=== PATIENT | male | born 1985 | race Caucasian/White ===

== ENCOUNTER 2021-06-07 19:16 | Inpatient (IN) ==
[2021-06-07] MEDS ORDERED: ALBUT/IPRATROP 3MG/0.5MG NEB 3 ML VIAL INH STA (20:46)
[2021-06-07] MEDS ORDERED: dexAMETHasone**PF** 10 MG/ML VIAL IV ONE (20:46)
--- NOTE | 2021-06-07 20:55 | Emergency Department Note ---
Impression & Plan Hypoxia, SOB (shortness of breath), Pneumonia, COVID-19 ED Provider Note NAME: PETER PARKER AGE: 35 SEX: M : 1985 ARRIVES VIA: Walk-In INFORMANT: [Patient] ED PROVIDER(S): [Devang Nunez MD] CHIEF COMPLAINT: Short of breath HISTORY OF PRESENT ILLNESS: The patient is a 35-year-old male who presents to the ED with complaints of dyspnea. He has been sick with what he thought might be the flu for about a week. He has been coughing and fatigued. He has been short of breath. No fever, no nausea or vomiting. He was diagnosed with Covid by outpatient testing. The patient has not been vaccinated. His whole family is ill with Covid although, he is the sickest of all of them. The patient is extremely short of breath with any exertion. He has no known emiliano g disease. He denies any vomiting or diarrhea. He has not had a fever. No issues with his taste or smell. REVIEW OF SYSTEMS: See HPI for pertinent positives and negatives. A total of ten systems were reviewed and were otherwise negative. PMHx/PSHx: See Below SOCIAL HISTORY: See Below. PHYSICAL EXAM: GENERAL: Patient is in mild to moderate respiratory distress. HEENT: No acute trauma, normocephalic atraumatic, mucous membranes moist, no nasal congestion, no scleral icterus. NECK: No stridor, no adenopathy, no meningismus, trachea is midline. LUNGS: Crackles at both bases, worse on the left. Increased respiratory rate, mild to moderate respiratory distress noted. Speaking in shorter sentences. HEART: Tachycardic, regular rhythm, no murmurs. ABDOMEN: Soft, nontender, bowel sounds positive, no hernias, no peritonitis. EXTREMITIES: No cyanosis or edema, full range of motion of all the joints without pain or difficulty, no signs for acute trauma. NEUROLOGIC: Oriented x 3, no acute motor or sensory deficits, no focal weakness. SKIN: No rash, no jaundice, no diaphoresis. DIFFERENTIAL DIAGNOSIS: Reactive airway disease, pneumonia, pneumothorax, COPD, COVID-19, CHF, infection, cardiac ischemia, pulmonary embolism, bronchitis, musculoskeletal, gastrointestinal, as well as other pathologies. EMERGENCY DEPARTMENT COURSE/PROCEDURES: Continuous Cardiac Monitoring: An order was placed for continuous cardiac monitoring. The monitor shows a rate of 105 with sinus tachycardia. Critical Care Note: I have personally spent 51 minutes of critical care time in the direct management of this patient. This includes bedside care, interpretation of diagnostic studies, and testing, discussion with consultants, patient, and family members, and other required patient management activities. This 51 minutes is in excess of all separately billable procedures. MEDICAL DECISION MAKING: There is no leukocytosis, in fact, the white count is slightly low consistent with a viral process. There was a normal hemoglobin and platelet count. No coagulopathy. No significant electrolyte abnormality or kidney failure. Lactic acid level was elevated consistent with potential dehydration or infection. No worrisome liver enzyme elevation. Total CK was not elevated. Cardiac enzyme testing x1 is not consistent with acute cardiac injury. Chest x-ray shows a bilateral pneumonia consistent with a Covid pneumonia. Covid testing returned positive. On exam, the patient was tachypneic. He became hypoxic with ambulation. He had crackles noted on his lung exam. He was coughing. He appeared to be in some mild to moderate respiratory distress. The patient received IV Decadron, 6 mg. He was given IV saline, 500 cc. He was given a DuoNeb. The patient presents with shortness of breath and tachypnea. He was hypoxic. He has Covid pneumonia by work-up. Given the oxygen requirement, a hospital stay is warranted. I spoke to the patient and corrections caseworker. The on-call hospitalist has been consulted. Past Med/Surg History Medical History No significant medical problems Social History Smoking Status: Never smoker Hx Alcohol Use: No Hx Substance Use: No Preferred Language: Stateless Communication Ability: Effective Beliefs That Will Affect Care: None Current Living Situation: Spouse Other Information That Helps Us Care for You: No Feels Safe at Home: Yes Safety Concerns: Feels Safe At This Time Allergies Allergies Allergy/AdvReac Type Severity Reaction Status Date / Time No Known Allergies Allergy Unverified 06/07/21 21:08 Home Meds Home Medications Medication Instructions Recorded Confirmed azithromycin 250 mg tablet 250 mg PO DAILY 06/07/21 06/07/21 clonidine 0.1 mg PO BID 06/07/21 06/07/21 dexamethasone 6 mg tablet 6 mg PO DAILY 06/07/21 06/07/21 (Decadron) Results & Data (ED) Vital Signs Vital Signs - 24 hr 06/07/21 19:34 06/07/21 20:25 06/07/21 21:00 Temperature 36.9 C Temperature Source Temporal Artery Scan Pulse Rate 106 H 101 H Pulse Rate [Finger] Respiratory Rate 22 28 H Respiratory Effort / Characteristics Non-Labored Spontaneous Spontaneous Labored Respiratory Depth Normal Normal Respiratory Pattern Regular Blood Pressure 158/87 H 140/74 Blood Pressure Mean 110 96 Blood Pressure Position Sitting Pulse Oximetry 93 93 94 Pulse Oximetry [Exercises] Oxygen Delivery Method Room Air Room Air Room Air Oxygen Flow Rate Sepsis Recent Fever Within 48 Hours No Sepsis New/Unexplained Change in Mental Status N/A Sepsis Action Taken by Nursing No Action Required Oxygen Flow Rate - Titration Pulse Oximetry Post Tiitration 06/07/21 21:15 06/07/21 21:21 06/07/21 22:02 Temperature Temperature Source Pulse Rate Pulse Rate [Finger] 94 H Respiratory Rate 28 H Respiratory Effort / Characteristics Spontaneous Short of Breath Respiratory Depth Respiratory Pattern Blood Pressure Blood Pressure Mean Blood Pressure Position Pulse Oximetry 90 91 Pulse Oximetry [Exercises] 89 L Oxygen Delivery Method Room Air Room Air Room Air Nasal Cannula Oxygen Flow Rate 0 Sepsis Recent Fever Within 48 Hours Sepsis New/Unexplained Change in Mental Status Sepsis Action Taken by Nursing Oxygen Flow Rate - Titration 2 Pulse Oximetry Post Tiitration 94 Home Medications Current Medication List: was personally reviewed by me Laboratory Data Attestation: I reviewed the patient's lab results. Result diagrams: 06/07/21 20:36 06/07/21 20:36 Lab Results 06/07/21 06/07/21 06/07/21 Range/Units 20:36 20:36 20:36 WBC 4.20 L (4.8-10.8) K/uL RBC 5.03 (4.7-6.1) M/uL Hgb 15.0 (14.0-18.0) g/dL Hct 43.0 (42-52) % MCV 85.5 (80-100) fL MCH 29.8 (25-34) pg MCHC 34.9 (32-36) g/dL RDW Std Deviation 43.4 (36.4-46.3) fL RDW Coeff of Calixto 13.9 (11.5-14.5) % Plt Count 165 (130-400) K/uL MPV 8.9 (7.4-10.4) fL Immature Gran % (Auto) 0.0 % Neut % (Auto) 84.7 % Lymph % (Auto) 8.6 % Lewis % (Auto) 6.7 % Eos % (Auto) 0.0 % Baso % (Auto) 0.0 % Neut # (Auto) 3.56 (1.4-6.5) K/uL Lymph # (Auto) 0.36 L (1.2-3.4) K/uL [place] # (Auto) 0.28 (0.11-0.59) K/uL Eos # (Auto) 0.00 (0-0.5) K/uL Baso # (Auto) 0.00 (0-0.2) K/uL Immature Gran # (Auto) 0.00 (0.00-0.02) K/uL PT 9.6 (9.0-12.0) Seconds INR 0.9 (0.9-1.1) APTT 25.6 (21.0-31.0) Seconds PTT Ratio 1.0 D-Dimer (0-500) ug/L FEU Sodium 136 (136-145) mmol/L Potassium 4.1 (3.5-5.1) mmol/L Chloride 103 (98-107) mmol/L Carbon Dioxide 24 (21-32) mmol/L Anion Gap 9.0 (3-11) BUN 16 (7-18) mg/dl Creatinine 0.92 (0.6-1.4) mg/dl Est Cr Clr Drug Dosing 162.1 ml/min Est GFR ( Amer) 122.7 ml/min Est GFR (Non-Af Amer) 105.9 ml/min BUN/Creatinine Ratio 17.3 (10-20) Glucose 223 H (70-99) mg/dl Lactate (0.4-2.0) mmol/L Calcium 8.3 L (8.5-10.1) mg/dl Phosphorus 2.2 L (2.5-4.9) mg/dl Magnesium 2.2 (1.8-2.4) mg/dl Ferritin 1233.6 H (8-388) ng/ml Total Bilirubin 0.5 (0.2-1) mg/dl AST 30 (15-37) U/L ALT 56 (12-78) U/L Alkaline Phosphatase 44 L (45-117) U/L Lactate Dehydrogenase (87-241) U/L Total Creatine Kinase 171 (39-308) U/L Troponin I < 0.015 (0-0.045) ng/ml NT-Pro-B Natriuret Pep 50 (0-450) pg/ml Total Protein 7.1 (6.4-8.2) gm/dl Albumin 3.0 L (3.4-5.0) gm/dl Globulin 4.1 H (2.5-4.0) gm/dl Albumin/Globulin Ratio 0.7 L (0.9-2) Procalcitonin (0-0.5) ng/ml COVID-19 Eval Order SARS-CoV-2 (PCR) (Negative) 06/07/21 06/07/21 06/07/21 Range/Units 20:36 20:36 21:20 WBC (4.8-10.8) K/uL RBC (4.7-6.1) M/uL Hgb (14.0-18.0) g/dL Hct (42-52) % MCV (80-100) fL MCH (25-34) pg MCHC (32-36) g/dL RDW Std Deviation (36.4-46.3) fL RDW Coeff of Calixto (11.5-14.5) % Plt Count (130-400) K/uL MPV (7.4-10.4) fL Immature Gran % (Auto) % Neut % (Auto) % Lymph % (Auto) % Lewis % (Auto) % Eos % (Auto) % Baso % (Auto) % Neut # (Auto) (1.4-6.5) K/uL Lymph # (Auto) (1.2-3.4) K/uL Lewis # (Auto) (0.11-0.59) K/uL Eos # (Auto) (0-0.5) K/uL Baso # (Auto) (0-0.2) K/uL Immature Gran # (Auto) (0.00-0.02) K/uL PT (9.0-12.0) Seconds INR (0.9-1.1) APTT (21.0-31.0) Seconds PTT Ratio D-Dimer 500 (0-500) ug/L FEU Sodium (136-145) mmol/L Potassium (3.5-5.1) mmol/L Chloride (98-107) mmol/L Carbon Dioxide (21-32) mmol/L Anion Gap (3-11) BUN (7-18) mg/dl Creatinine (0.6-1.4) mg/dl Est Cr Clr Drug Dosing ml/min Est GFR ( Amer) ml/min Est GFR (Non-Af Amer) ml/min BUN/Creatinine Ratio (10-20) Glucose (70-99) mg/dl Lactate (0.4-2.0) mmol/L Calcium (8.5-10.1) mg/dl Phosphorus (2.5-4.9) mg/dl Magnesium (1.8-2.4) mg/dl Ferritin (8-388) ng/ml Total Bilirubin (0.2-1) mg/dl AST (15-37) U/L ALT (12-78) U/L Alkaline Phosphatase (45-117) U/L Lactate Dehydrogenase 304 H (87-241) U/L Total Creatine Kinase (39-308) U/L Troponin I (0-0.045) ng/ml NT-Pro-B Natriuret Pep (0-450) pg/ml Total Protein (6.4-8.2) gm/dl Albumin (3.4-5.0) gm/dl Globulin (2.5-4.0) gm/dl Albumin/Globulin Ratio (0.9-2) Procalcitonin < 0.05 (0-0.5) ng/ml COVID-19 Eval Order SARS-CoV-2 (PCR) (Negative) 06/07/21 06/07/21 06/07/21 Range/Units 21:21 21:21 21:36 WBC (4.8-10.8) K/uL RBC (4.7-6.1) M/uL Hgb (14.0-18.0) g/dL Hct (42-52) % MCV (80-100) fL MCH (25-34) pg MCHC (32-36) g/dL RDW Std Deviation (36.4-46.3) fL RDW Coeff of Calixto (11.5-14.5) % Plt Count (130-400) K/uL MPV (7.4-10.4) fL Immature Gran % (Auto) % Neut % (Auto) % Lymph % (Auto) % Lewis % (Auto) % Eos % (Auto) % Baso % (Auto) % Neut # (Auto) (1.4-6.5) K/uL Lymph # (Auto) (1.2-3.4) K/uL Lewis # (Auto) (0.11-0.59) K/uL Eos # (Auto) (0-0.5) K/uL Baso # (Auto) (0-0.2) K/uL Immature Gran # (Auto) (0.00-0.02) K/uL PT (9.0-12.0) Seconds INR (0.9-1.1) APTT (21.0-31.0) Seconds PTT Ratio D-Dimer (0-500) ug/L FEU Sodium (136-145) mmol/L Potassium (3.5-5.1) mmol/L Chloride (98-107) mmol/L Carbon Dioxide (21-32) mmol/L Anion Gap (3-11) BUN (7-18) mg/dl Creatinine (0.6-1.4) mg/dl Est Cr Clr Drug Dosing ml/min Est GFR ( Amer) ml/min Est GFR (Non-Af Amer) ml/min BUN/Creatinine Ratio (10-20) Glucose (70-99) mg/dl Lactate 2.1 H* (0.4-2.0) mmol/L Calcium (8.5-10.1) mg/dl Phosphorus (2.5-4.9) mg/dl Magnesium (1.8-2.4) mg/dl Ferritin (8-388) ng/ml Total Bilirubin (0.2-1) mg/dl AST (15-37) U/L ALT (12-78) U/L Alkaline Phosphatase (45-117) U/L Lactate Dehydrogenase (87-241) U/L Total Creatine Kinase (39-308) U/L Troponin I (0-0.045) ng/ml NT-Pro-B Natriuret Pep (0-450) pg/ml Total Protein (6.4-8.2) gm/dl Albumin (3.4-5.0) gm/dl Globulin (2.5-4.0) gm/dl Albumin/Globulin Ratio (0.9-2) Procalcitonin (0-0.5) ng/ml COVID-19 Eval Order Covid19 at [facility] SARS-CoV-2 (PCR) POSITIVE A* (Negative) Administered Medications Discontinued Medications Albuterol (Albut/Ipratrop 3mg/0.5mg Neb 3 Ml Vial) 3 ml INH NOW STA Stop: 06/07/21 20:47 Last Admin: 06/07/21 21:14 Dose: 3 ml Documented by: [id number] Dexamethasone Sodium Phosphate (DexamethasonePf 10 Mg/Ml Vial) 6 mg IV NOW ONE Stop: 06/07/21 20:47 Last Admin: 06/07/21 21:02 Dose: 6 mg Documented by: [id number] Sodium Chloride (Nss 1000ml) 500 mls @ 999 mls/hr IV .Q31M ONE Stop: 06/07/21 22:18 Last Infusion: 06/07/21 22:32 Dose: 0 mls/hr Documented by: [id number] Admin: 06/07/21 22:01 Dose: 999 mls/hr Documented by: [id number] Remdesivir 200 mg/ Sodium (Chloride) 250 mls @ 125 mls/hr IV ONE STA; Protocol Stop: 06/08/21 00:20 Last Admin: 06/07/21 23:15 Dose: 125 mls/hr Documented by: [id number] Imaging Data Radiologist's Impression: Chest X-Ray 06/07/21 20:47 XR chest 1V portable CLINICAL HISTORY: Shortness of breath. COMPARISON STUDY: No previous studies for comparison. FINDINGS: This exam is compromised by artifact. There is no pneumothorax or pleural effusion. Note is made of moderate bilateral airspace opacities. Mild enlargement of the cardiac silhouette is noted. IMPRESSION: Moderate bilateral airspace opacities suggestive of an infectious process such as viral pneumonia. Radiographic follow-up is recommended to ensure resolution. ACT 112: Negative or not required by law. Electronically signed by: Patric Coon M.D. 06/07/2021 9:11 PM Discharge Plan Visit Data Chief Complaint: Shortness of Breath/Dyspnea Stated Complaint: SOB, COVID+ ED Provider: Devang Nunez Discharge Problem: Hypoxia, SOB (shortness of breath), Pneumonia, COVID-19 Patient Disposition: Admitted As Inpatient Condition: Fair Discharge Instructions Interventions: ED Discharge Assessment Last Done: 06/07/21 23:46
[2021-06-07 21:11] LABS: Lymphocytes # (auto) 0.36 K/uL (1.2-3.4); Lymphocytes % (auto) 8.6 %; Mean Corpuscular Hemoglobin 29.8 pg (25-34); Mean Corpuscular Hgb Conc 34.9 g/dL (32-36); Mean Corpuscular Volume 85.5 fL (80-100); Mean Platelet Volume 8.9 fL (7.4-10.4); Monocytes # (auto) 0.28 K/uL (0.11-0.59); Monocytes % (auto) 6.7 %; Neutrophils # (auto) 3.56 K/uL (1.4-6.5); Neutrophils % (auto) 84.7 %; Platelet Count 165 K/uL (130-400); RDW Coefficient of Variation 13.9 % (11.5-14.5); RDW Standard Deviation 43.4 fL (36.4-46.3); Red Blood Count 5.03 M/uL (4.7-6.1)
--- NOTE | 2021-06-07 21:12 | XRay Report ---
XR chest 1V portable CLINICAL HISTORY: Shortness of breath. COMPARISON STUDY: No previous studies for comparison. FINDINGS: This exam is compromised by artifact. There is no pneumothorax or pleural effusion. Note is made of moderate bilateral airspace opacities. Mild enlargement of the cardiac silhouette is noted. IMPRESSION: Moderate bilateral airspace opacities suggestive of an infectious process such as viral pneumonia. Radiographic follow-up is recommended to ensure resolution. ACT 112: Negative or not required by law. Electronically signed by: Patric Coon M.D. 06/07/2021 9:11 PM
[2021-06-07 21:24] LABS: INR 0.9 (0.9-1.1); Partial Thromboplastin Time 25.6 Seconds (21.0-31.0); Prothrombin Time 9.6 Seconds (9.0-12.0)
[2021-06-07 21:29] LABS: Aspartate Aminotransferase 30 U/L (15-37); BUN Creatinine Ratio 17.3 (10-20); Blood Urea Nitrogen 16 mg/dl (7-18); Calcium 8.3 mg/dl (8.5-10.1); Carbon Dioxide 24 mmol/L (21-32); Chloride 103 mmol/L (98-107); Creatinine Clr Calc Pharmacy 162.1 ml/min; Est GFR (African American) 122.7 ml/min; Est GFR (Non-African American) 105.9 ml/min; Glucose 223 mg/dl (70-99); Magnesium 2.2 mg/dl (1.8-2.4); Potassium 4.1 mmol/L (3.5-5.1); Sodium 136 mmol/L (136-145)
[2021-06-07 21:33] LABS: Alanine Aminotransferase 56 U/L (12-78); Albumin Globulin Ratio 0.7 (0.9-2); Alkaline Phosphatase 44 U/L (45-117); Bilirubin,Total 0.5 mg/dl (0.2-1); Globulin 4.1 gm/dl (2.5-4.0); Total Protein 7.1 gm/dl (6.4-8.2); Troponin I < 0.015 ng/ml (0-0.045)
[2021-06-07] MEDS ORDERED: SODIUM CHLORIDE 0.9% 1000ML 500 ML IV ONE (21:48)
[2021-06-07] MEDS ORDERED: REMDESIVIR 200 MG in SODIUM CHLORIDE 0.9% 210 ML IV STA (22:21)
--- NOTE | 2021-06-07 22:22 | History & Physical Report ---
Date of Service June 07, 2021 Assessment & Plan (1) COVID-19: Plan: 35-year-old male with history of obesity, hypertension presenting with COVID-19 pneumonia. Patient has been ill approximately 1 week. Presents with cough, fatigue, shortness of breath. He was hypoxic on arrival to 89% on room air as well as tachypneic with respiratory rate of 28. Patient has been on azithromycin as well as dexamethasone 6 mg oral daily x5-day course which were started on 06/05/2021. Risk factors for severe disease include morbid obesity Patient is unvaccinated Admit to medical Maintain isolation precautions for Covid Continue supplemental oxygen as needed with goal saturation of greater than 94% Prone positioning as tolerated Check procalcitonin, BNP, LDH, ferritin, D-dimer Dexamethasone 6 mg IV daily Remdesivir per 5-day protocol Incentive spirometry as tolerated Albuterol HFA as needed Tylenol as needed for pain or fever Mucinex 1200 mg twice daily Lovenox 80 mg twice daily for DVT prophylaxis in setting of Covid (2) Hypertension: Plan: Blood pressure elevated, presently 171/91 Continue clonidine 0.1 mg p.o. twice daily. This is patient's outpatient medication. Uncertain if he has been tried on other agents prior to initiation of clonidine. Alternative agent should be considered Continue to monitor (3) Elevated blood sugar: Plan: Patient with elevated blood sugar of 223. No formal diagnosis of diabetes. Has been on steroids as an outpatient. We will check hemoglobin A1c with next blood draw Lantus 10 units twice daily, insulin sliding scale Goal blood sugar 100-1 40 Plan: FENHep-Lock, monitor electrolytes and replete as needed, heart healthy diet as tolerated ProphylaxisLovenox 80 mg twice daily Codefull per discussion with patient Dispositionadmit to medical History of Present Illness Chief Complaint: Shortness of breath Primary Care Provider: NO PCP Saravanan Rowland is a 35-year-old male with history of morbid obesity, hypertension, hyperlipidemia presenting with COVID-19 pneumonia. Patient began to feel ill approximately 1 week ago with cough, fatigue and shortness of breath. He tested positive for Covid in an outpatient facility. He is not vaccinated. His entire family is presently sick with Covid as well however, he is the most ill at this point. He denies chest pain, palpitations, abdominal pain, nausea, vomiting, diarrhea, loss of taste or smell ER coursealbuterol, dexamethasone, normal saline Allergies Allergy/AdvReac Type Severity Reaction Status Date / Time No Known Allergies Allergy Unverified 06/07/21 21:08 Home Medications Medication Instructions Recorded Confirmed Type azithromycin 250 mg tablet 250 mg PO DAILY 06/07/21 06/07/21 History clonidine 0.1 mg PO BID 06/07/21 06/07/21 History dexamethasone 6 mg tablet 6 mg PO DAILY 06/07/21 06/07/21 History (Decadron) Past Med/Surg History Medical History (Updated 06/08/21 @ 02:05 by Marleen Laws DO) Hyperlipidemia Hypertension Obesity Surgical History (Updated 06/08/21 @ 01:57 by Marleen Laws DO) History of removal of cyst Social History Smoking Status: Never smoker Hx Alcohol Use: No Hx Substance Use: No Preferred Language: Wallisian Communication Ability: Effective Beliefs That Will Affect Care: None Current Living Situation: Spouse Other Information That Helps Us Care for You: No Feels Safe at Home: Yes Safety Concerns: Feels Safe At This Time Review of Systems Review of Systems: All systems reviewed & are unremarkable except as noted in HPI & below Physical Exam Physical Exam: General: patient ill in appearance, NAD, AA&O x 4 Skin: warm, dry, intact, no rashes or lesions HEENT: NC/AT, PERRL, EOMI, anicteric sclera, conjunctiva without injection, external ear normal to inspection and nontender, nares patent, moist mucus membranes, dentition intact, no oropharyngeal lesions, neck supple, trachea midline, no LAD, no thyromegaly, no JVD Heart: +S1/S2, regular, no m/r/g Lungs: equal air entry bilaterally, fine crackles present in bilateral bases Abd: +BS, soft, NT/ND, no masses/organomegaly/ascites Ext: warm, 2+ pulses in UE/LE bilaterally, no clubbing/cyanosis or edema Neuro: nonfocal, patient AA&O x 4, speech intact, no facial droop, moving all extremities on command with equal strength 5/5 Results & Data Results & Data ([facility]) Vital Signs (Past 12 Hours) Vital Signs Temp Pulse Pulse Resp BP Pulse Ox Pulse Ox 06/07/21 22:02 91 06/07/21 21:21 89 L 06/07/21 21:15 94 H 28 H 90 06/07/21 21:00 101 H 28 H 140/74 94 06/07/21 20:25 93 06/07/21 19:34 36.9 C 106 H 22 158/87 H 93 Laboratory Results Laboratory Results WBC 4.20 K/uL (4.8-10.8) L 06/07/21 20:36 RBC 5.03 M/uL (4.7-6.1) 06/07/21 20:36 Hgb 15.0 g/dL (14.0-18.0) 06/07/21 20:36 Hct 43.0 % (42-52) 06/07/21 20:36 MCV 85.5 fL (80-100) 06/07/21 20:36 MCH 29.8 pg (25-34) 06/07/21 20:36 MCHC 34.9 g/dL (32-36) 06/07/21 20:36 RDW Std Deviation 43.4 fL (36.4-46.3) 06/07/21 20:36 RDW Coeff of Calixto 13.9 % (11.5-14.5) 06/07/21 20:36 Plt Count 165 K/uL (130-400) 06/07/21 20:36 MPV 8.9 fL (7.4-10.4) 06/07/21 20:36 Immature Gran % (Auto) 0.0 % 06/07/21 20:36 Neut % (Auto) 84.7 % 06/07/21 20:36 Lymph % (Auto) 8.6 % 06/07/21 20:36 [place] % (Auto) 6.7 % 06/07/21 20:36 Eos % (Auto) 0.0 % 06/07/21 20:36 Baso % (Auto) 0.0 % 06/07/21 20:36 Neut # (Auto) 3.56 K/uL (1.4-6.5) 06/07/21 20:36 Lymph # (Auto) 0.36 K/uL (1.2-3.4) L 06/07/21 20:36 [place] # (Auto) 0.28 K/uL (0.11-0.59) 06/07/21 20:36 Eos # (Auto) 0.00 K/uL (0-0.5) 06/07/21 20:36 Baso # (Auto) 0.00 K/uL (0-0.2) 06/07/21 20:36 Immature Gran # (Auto) 0.00 K/uL (0.00-0.02) 06/07/21 20:36 PT 9.6 Seconds (9.0-12.0) 06/07/21 20:36 INR 0.9 (0.9-1.1) 06/07/21 20:36 APTT 25.6 Seconds (21.0-31.0) 06/07/21 20:36 PTT Ratio 1.0 06/07/21 20:36 D-Dimer 500 ug/L FEU (0-500) 06/07/21 21:20 Sodium 136 mmol/L (136-145) 06/07/21 20:36 Potassium 4.1 mmol/L (3.5-5.1) 06/07/21 20:36 Chloride 103 mmol/L (98-107) 06/07/21 20:36 Carbon Dioxide 24 mmol/L (21-32) 06/07/21 20:36 Anion Gap 9.0 (3-11) 06/07/21 20:36 BUN 16 mg/dl (7-18) 06/07/21 20:36 Creatinine 0.92 mg/dl (0.6-1.4) 06/07/21 20:36 Est Cr Clr Drug Dosing 162.1 ml/min 06/07/21 20:36 Est GFR ( Amer) 122.7 ml/min 06/07/21 20:36 Est GFR (Non-Af Amer) 105.9 ml/min 06/07/21 20:36 BUN/Creatinine Ratio 17.3 (10-20) 06/07/21 20:36 Glucose 223 mg/dl (70-99) H 06/07/21 20:36 POC Glucose 182 mg/dl (70-99) H 06/08/21 01:39 Lactate 2.0 mmol/L (0.4-2.0) 06/08/21 00:53 Calcium 8.3 mg/dl (8.5-10.1) L 06/07/21 20:36 Phosphorus 2.2 mg/dl (2.5-4.9) L 06/07/21 20:36 Magnesium 2.2 mg/dl (1.8-2.4) 06/07/21 20:36 Ferritin 1233.6 ng/ml (8-388) H 06/07/21 20:36 Total Bilirubin 0.5 mg/dl (0.2-1) 06/07/21 20:36 AST 30 U/L (15-37) 06/07/21 20:36 ALT 56 U/L (12-78) 06/07/21 20:36 Alkaline Phosphatase 44 U/L (45-117) L 06/07/21 20:36 Lactate Dehydrogenase 304 U/L (87-241) H 06/07/21 20:36 Total Creatine Kinase 171 U/L (39-308) 06/07/21 20:36 Troponin I < 0.015 ng/ml (0-0.045) 06/07/21 20:36 NT-Pro-B Natriuret Pep 50 pg/ml (0-450) 06/07/21 20:36 Total Protein 7.1 gm/dl (6.4-8.2) 06/07/21 20:36 Albumin 3.0 gm/dl (3.4-5.0) L 06/07/21 20:36 Globulin 4.1 gm/dl (2.5-4.0) H 06/07/21 20:36 Albumin/Globulin Ratio 0.7 (0.9-2) L 06/07/21 20:36 Procalcitonin < 0.05 ng/ml (0-0.5) 06/07/21 20:36 COVID-19 Eval Order Covid19 at [facility] 06/07/21 21:21 SARS-CoV-2 (PCR) POSITIVE (Negative) A* 06/07/21 21:21 Impressions Chest X-Ray 06/07/21 20:47 XR chest 1V portable CLINICAL HISTORY: Shortness of breath. COMPARISON STUDY: No previous studies for comparison. FINDINGS: This exam is compromised by artifact. There is no pneumothorax or pleural effusion. Note is made of moderate bilateral airspace opacities. Mild enlargement of the cardiac silhouette is noted. IMPRESSION: Moderate bilateral airspace opacities suggestive of an infectious process such as viral pneumonia. Radiographic follow-up is recommended to ensure resolution. ACT 112: Negative or not required by law. Electronically signed by: Patric Coon M.D. 06/07/2021 9:11 PM Code Status & VTE Plan VTE Prophylaxis Plan VTE Prophylaxis will be ordered: Yes PG Care Time/CCT Total # of Minutes Spent Total Time Spent with Patient: Total time spent is greater than 50% in coordination of care (as documented) at patient's floor/unit and/or counseling patient: Coding Level of Care Code 25899 Initial Inpt Care Lvl 2 Diagnoses Hypertension I10 COVID-19 U07.1 Elevated blood sugar R73.9
[2021-06-08] MEDS ORDERED: GLUCOSE 10 TABS/TUBE PO PRN (00:09)
[2021-06-08] MEDS ORDERED: ONDANSETRON INJ 2 MG/ML 2 ML VIAL IV PRN (00:09)
[2021-06-08] MEDS ORDERED: GLUCAGON FOR INJ 1 MG VIAL SQ PRN (00:09)
[2021-06-08] MEDS ORDERED: CARBOHYDRATES FOR HYPOGLYCEMIA PO PRN (00:09)
[2021-06-08] MEDS ORDERED: ALBUTEROL HFA 8 GM INHALER INH PRN (00:09)
[2021-06-08] MEDS ORDERED: DEXTROSE 50% 50 ML SYRINGE IV PRN (00:09)
[2021-06-08] MEDS ORDERED: GLUCOSE 40% GEL 15 GM TUBE PO PRN (00:09)
[2021-06-08] MEDS ORDERED: LACTATED RINGER'S 1,000 ML IV SCH (00:09)
[2021-06-08 00:32] LABS: D Dimer 500 ug/L FEU (0-500)
[2021-06-08 00:59] LABS: Creatine Kinase 171 U/L (39-308); Ferritin 1233.6 ng/ml (8-388); NT Pro B Type Natriuretic Pept 50 pg/ml (0-450); Phosphorus 2.2 mg/dl (2.5-4.9)
[2021-06-08] MEDS: INSULIN ASPART 100 UNITS/ML 3 ML PEN SC SCH ×5 (02:30→20:36)
[2021-06-08] MEDS: ENOXAPARIN 80 MG/0.8 ML SYR SQ SCH ×2 (02:30→18:22)
[2021-06-08 06:23] LABS: Hematocrit (blood only) 44.5 % (42-52); Immature Granulocytes # (auto) 0.01 K/uL (0.00-0.02); Immature Granulocytes % (auto) 0.3 %; Lymphocytes % (auto) 12.6 %; Mean Corpuscular Hemoglobin 29.4 pg (25-34); Mean Corpuscular Hgb Conc 33.7 g/dL (32-36); Mean Corpuscular Volume 87.3 fL (80-100); Monocytes # (auto) 0.31 K/uL (0.11-0.59); Monocytes % (auto) 7.8 %; Neutrophils # (auto) 3.14 K/uL (1.4-6.5); Neutrophils % (auto) 79.3 %; Platelet Count 170 K/uL (130-400); RDW Coefficient of Variation 13.9 % (11.5-14.5); White Blood Count 3.96 K/uL (4.8-10.8)
[2021-06-08 06:56] LABS: Albumin Level 2.9 gm/dl (3.4-5.0); BUN Creatinine Ratio 18.4 (10-20); Bilirubin Direct 0.1 mg/dl (0-0.2); Calcium 8.4 mg/dl (8.5-10.1); Est GFR (African American) 132.3 ml/min; Est GFR (Non-African American) 114.1 ml/min; Potassium 4.6 mmol/L (3.5-5.1)
[2021-06-08 07:00] LABS: Bilirubin,Total 0.5 mg/dl (0.2-1)
[2021-06-08 07:20] LABS: Estimated Average Glucose 123 mg/dl; Hemoglobin A1C 5.9 % (4.5-5.6)
[2021-06-08] MEDS: ACETAMINOPHEN 325 MG TAB PO PRN (07:50)
[2021-06-08] MEDS: dexAMETHasone 6 MG in SYRINGE 0 ML IV SCH (07:51)
[2021-06-08] MEDS: guaiFENesin 600 MG TABCR PO SCH ×2 (07:51→19:37)
[2021-06-08] MEDS: cloNIDine HCL 0.1 MG TAB PO SCH ×2 (07:51→19:37)
[2021-06-08] MEDS: INSULIN GLARGINE SOLOSTAR 100 UNITS/ML 3 ML PEN SC SCH ×2 (08:18→20:41)
[2021-06-08] MEDS: REMDESIVIR 100 MG in SODIUM CHLORIDE 0.9% 230 ML IV SCH (19:37)
[2021-06-08] MEDS: SODIUM CHLORIDE 0.9% 10ML FLUSH IV SCH (20:37)
--- NOTE | 2021-06-08 20:40 | Hospitalist Progress Note ---
Date of Service June 08, 2021 Assessment & Plan (1) COVID-19: Plan: 35-year-old male with history of obesity, hypertension presenting with COVID-19 pneumonia. Patient has been ill approximately 1 week. Presents with cough, fatigue, shortness of breath. He was hypoxic on arrival to 89% on room air as well as tachypneic with respiratory rate of 28. Patient has been on azithromycin as well as dexamethasone 6 mg oral daily x5-day course which were started on 06/05/2021. Risk factors for severe disease include morbid obesity Patient is unvaccinated Admit to medical Maintain isolation precautions for Covid Continue supplemental oxygen as needed with goal saturation of greater than 94% Prone positioning as tolerated procal is negative, will continue Dexamethasone 6 mg IV daily will continue Remdesivir per 5-day protocol Incentive spirometry as tolerated Albuterol HFA as needed Tylenol as needed for pain or fever Mucinex 1200 mg twice daily Lovenox 80 mg twice daily for DVT prophylaxis in setting of Covid (2) Hypertension: Plan: Blood pressure elevated, presently 171/91 Continue clonidine 0.1 mg p.o. twice daily. This is patient's outpatient me dication. Uncertain if he has been tried on other agents prior to initiation of clonidine. Alternative agent should be considered Continue to monitor (3) Elevated blood sugar: Plan: Patient with elevated blood sugar of 223. No formal diagnosis of diabetes. Has been on steroids as an outpatient. We will check hemoglobin A1c with next blood draw Lantus 10 units twice daily, insulin sliding scale Goal blood sugar 100-1 40 Plan: FENHep-Lock, monitor electrolytes and replete as needed, heart healthy diet as tolerated ProphylaxisLovenox 80 mg twice daily Codefull per discussion with patient Admission and Anticipated Discharge Date Admission Date: June 07, 2021 Subjective Patient reports having a cough, non productive. Patient reports feeling SOB. Review of Systems Review of Systems: All systems reviewed & are unremarkable except as noted in HPI & below Physical Exam Physical Exam: General: patient ill in appearance, NAD, AA&O x 4 Skin: warm, dry, intact, no rashes or lesions HEENT: NC/AT, PERRL, EOMI, anicteric sclera, conjunctiva without injection, external ear normal to inspection and nontender, nares patent, moist mucus membranes, dentition intact, no oropharyngeal lesions, neck supple, trachea midline, no LAD, no thyromegaly, no JVD Heart: +S1/S2, regular, no m/r/g Lungs: equal air entry bilaterally, fine crackles present in bilateral bases Abd: +BS, soft, NT/ND, no masses/organomegaly/ascites Ext: warm, 2+ pulses in UE/LE bilaterally, no clubbing/cyanosis or edema Neuro: nonfocal, patient AA&O x 4, speech intact, no facial droop, moving all extremities on command with equal strength 5/5 Results & Data Results & Data ([facility]) Vital Signs (Past 12 Hours) Vital Signs Temp Pulse Resp BP Pulse Ox 06/08/21 18:57 36.8 C 81 18 128/79 93 06/08/21 15:57 36.4 C L 81 23 134/75 94 06/08/21 11:48 36.7 C 81 22 128/79 94 PG Care Time/CCT Total # of Minutes Spent Total Time Spent with Patient: Total time spent is greater than 50% in coordination of care (as documented) at patient's floor/unit and/or counseling patient: Coding Level of Care Code 08852 Subseq Hosp Care Lvl 2 Diagnoses COVID-19 U07.1 Hypertension I10 Elevated blood sugar R73.9 Time Spent (min) 25
[2021-06-08] MEDS ORDERED: BENZONATATE 100 MG CAPSULE PO ONE (21:39)
[2021-06-09] MEDS: ENOXAPARIN 80 MG/0.8 ML SYR SQ SCH ×2 (06:10→17:52)
[2021-06-09] MEDS: guaiFENesin 600 MG TABCR PO SCH ×2 (08:24→19:58)
[2021-06-09] MEDS: dexAMETHasone 6 MG in SYRINGE 0 ML IV SCH (08:24)
[2021-06-09] MEDS: cloNIDine HCL 0.1 MG TAB PO SCH ×2 (08:24→19:59)
[2021-06-09] MEDS: INSULIN ASPART 100 UNITS/ML 3 ML PEN SC SCH ×4 (09:44→20:31)
[2021-06-09] MEDS: INSULIN GLARGINE SOLOSTAR 100 UNITS/ML 3 ML PEN SC SCH ×2 (09:45→21:10)
[2021-06-09] MEDS: REMDESIVIR 100 MG in SODIUM CHLORIDE 0.9% 230 ML IV SCH (19:58)
[2021-06-09] MEDS ORDERED: ALBUT/IPRATROP 3MG/0.5MG NEB 3 ML VIAL NEB PRN (20:20)
[2021-06-09] MEDS: ACETAMINOPHEN 325 MG TAB PO PRN (20:35)
[2021-06-09] MEDS: SODIUM CHLORIDE 0.9% 10ML FLUSH IV SCH (21:09)
--- NOTE | 2021-06-09 22:08 | Hospitalist Progress Note ---
Date of Service June 09, 2021 Assessment & Plan (1) COVID-19: Plan: 35-year-old male with history of obesity, hypertension presenting with COVID-19 pneumonia. Patient has been ill approximately 1 week. Presents with cough, fatigue, shortness of breath. He was hypoxic on arrival to 89% on room air as well as tachypneic with respiratory rate of 28. Patient has been on azithromycin as well as dexamethasone 6 mg oral daily x5-day course which were started on 06/05/2021. Risk factors for severe disease include morbid obesity Patient is unvaccinated Admit to medical Maintain isolation precautions for Covid Continue supplemental oxygen as needed with goal saturation of greater than 94% Prone positioning as tolerated procal is negative, will continue Dexamethasone 6 mg IV daily will continue Remdesivir per 5-day protocol Incentive spirometry as tolerated Albuterol HFA as needed Tylenol as needed for pain or fever Mucinex 1200 mg twice daily Lovenox 80 mg twice daily for DVT prophylaxis in setting of Covid -Patient is not improving however keeping steady with 6 liters 02 supplementation (2) Hypertension: Plan: Blood pressure elevated, presently 171/91 Continue clonidine 0.1 mg p.o. twice daily. This is patient's outpatient medication. Uncertain if he has been tried on other agents prior to initiation of clonidine. Alternative agent should be considered Continue to monitor (3) Elevated blood sugar: Plan: Patient with elevated blood sugar of 223. No formal diagnosis of diabetes. Has been on steroids as an outpatient. We will check hemoglobin A1c with next blood draw Lantus 10 units twice daily, insulin sliding scale Goal blood sugar 100-1 40 Plan: FENHep-Lock, monitor electrolytes and replete as needed, heart healthy diet as tolerated ProphylaxisLovenox 80 mg twice daily Codefull per discussion with patient Admission and Anticipated Discharge Date Admission Date: June 07, 2021 Subjective Patient reports feeling about the same. Review of Systems Review of Systems: All systems reviewed & are unremarkable except as noted in HPI & below Physical Exam Physical Exam: General: patient ill in appearance, NAD, AA&O x 4 Skin: warm, dry, intact, no rashes or lesions HEENT: NC/AT, PERRL, EOMI, anicteric sclera, conjunctiva without injection, external ear normal to inspection and nontender, nares patent, moist mucus membranes, dentition intact, no oropharyngeal lesions, neck supple, trachea midline, no LAD, no thyromegaly, no JVD Heart: +S1/S2, regular, no m/r/g Lungs: equal air entry bilaterally, fine crackles present in bilateral bases Abd: +BS, soft, NT/ND, no masses/organomegaly/ascites Ext: warm, 2+ pulses in UE/LE bilaterally, no clubbing/cyanosis or edema Neuro: nonfocal, patient AA&O x 4, speech intact, no facial droop, moving all extremities on command with equal strength 5/5 Results & Data Results & Data ([facility]) Vital Signs (Past 12 Hours) Vital Signs Temp Pulse Resp BP Pulse Ox 06/09/21 20:10 81 24 90 06/09/21 19:55 36.6 C 81 18 143/80 H 89 L PG Care Time/CCT Total # of Minutes Spent Total Time Spent with Patient: Total time spent is greater than 50% in coordination of care (as documented) at patient's floor/unit and/or counseling patient: Coding Level of Care Code 15601 Subseq Hosp Care Lvl 2 Diagnoses COVID-19 U07.1 Hypertension I10 Elevated blood sugar R73.9 Time Spent (min) 25
[2021-06-10] MEDS: ENOXAPARIN 80 MG/0.8 ML SYR SQ SCH ×2 (06:10→17:41)
[2021-06-10] MEDS: guaiFENesin 600 MG TABCR PO SCH ×2 (08:41→21:10)
[2021-06-10] MEDS: cloNIDine HCL 0.1 MG TAB PO SCH ×2 (08:41→21:09)
[2021-06-10] MEDS: dexAMETHasone 6 MG in SYRINGE 0 ML IV SCH (08:41)
[2021-06-10] MEDS: INSULIN ASPART 100 UNITS/ML 3 ML PEN SC SCH ×4 (09:44→21:17)
[2021-06-10] MEDS: INSULIN GLARGINE SOLOSTAR 100 UNITS/ML 3 ML PEN SC SCH ×2 (09:44→21:18)
[2021-06-10 10:00] LABS: Eosinophils # (auto) 0.01 K/uL (0-0.5); Eosinophils % (auto) 0.2 %; Hematocrit (blood only) 45.1 % (42-52); Hemoglobin 15.6 g/dL (14.0-18.0); Immature Granulocytes # (auto) 0.01 K/uL (0.00-0.02); Immature Granulocytes % (auto) 0.2 %; Lymphocytes # (auto) 0.92 K/uL (1.2-3.4); Mean Corpuscular Hemoglobin 30.2 pg (25-34); Mean Corpuscular Hgb Conc 34.6 g/dL (32-36); Mean Corpuscular Volume 87.2 fL (80-100); Mean Platelet Volume 8.6 fL (7.4-10.4); Monocytes # (auto) 0.48 K/uL (0.11-0.59); Monocytes % (auto) 7.3 %; Neutrophils # (auto) 5.14 K/uL (1.4-6.5); Neutrophils % (auto) 78.3 %; Platelet Count 222 K/uL (130-400); RDW Coefficient of Variation 13.8 % (11.5-14.5); RDW Standard Deviation 44.5 fL (36.4-46.3); Red Blood Count 5.17 M/uL (4.7-6.1); White Blood Count 6.56 K/uL (4.8-10.8)
[2021-06-10 10:15] LABS: D Dimer 500 ug/L FEU (0-500); Fibrinogen 515 mg/dl (184-400)
[2021-06-10 10:26] LABS: Albumin Level 2.9 gm/dl (3.4-5.0); BUN Creatinine Ratio 24.2 (10-20); Calcium 8.4 mg/dl (8.5-10.1); Creatinine Clr Calc Pharmacy 166.9 ml/min; Est GFR (African American) 121.1 ml/min; Est GFR (Non-African American) 104.5 ml/min; Potassium 4.2 mmol/L (3.5-5.1)
[2021-06-10 10:31] LABS: Albumin Globulin Ratio 0.7 (0.9-2); Bilirubin,Total 0.6 mg/dl (0.2-1); Globulin 4.1 gm/dl (2.5-4.0)
--- NOTE | 2021-06-10 13:09 | Pulmonary Consultation ---
Date of Consultation June 10, 2021 Assessment & Plan (1) Acute respiratory failure with hypoxia: (2) Pneumonia: Laterality: bilateral Lung location: unspecified part of lung Pneumonia type: due to unspecified organism Qualified Code(s): J18.9 - Pneumonia, unspecified organism (3) COVID-19: (4) SOB (shortness of breath): Chest x-ray 06/07/2021 personally reviewed: Portable film, poor inspiratory effort, diffuse patchy alveolar opacities appreciated bilaterally left lower lobe --Acute hypoxic respiratory failure Secondary to multilobar COVID-19 pneumonia COVID-19 PCR positive CRP Procalcitonin negative Continue with remdesivir for 5 days Continue with dexamethasone for 10 days Continue with O2 supplementation to keep oxygen saturation between 90-92%. Awake proning will be helpful Continue with incentive spirometry Continue with flutter valve. Recommend patient to be kept euvolemic to negative balance --Morbid obesity possible SARAHY BiPAP nightly and as needed shortness of breath Plan: In/out +1827, Recommend strict output. With the patient on BiPAP / nightly and as needed shortness of breath Follow-up CRP Case was discussed with RN Please note the above document was generated using voice recognition software. It may contain grammatical, syntax or spelling errors.Any formal questions or concerns about the content, text or information contained within the body of this dictation should be directly addressed to the provider for clarification. History of Present Illness Attending Physician: Paul Roberts History of Present Illness 35-year-old male with past medical history of hypertension, dyslipidemia presented to the hospital with complaints of shortness of breath going on since approximately 7-10 days progressively getting worse He was found to be COVID-19 positive He is not vaccinated. Pulmonary pulmonary consulted because of increased in O2 requirement At the time of examination patient was on 8 L nasal cannula saturating 90%. He was emotional as he recently lost his mother due to COVID-19 pneumonia. Shortness of breath is improved as per the patient. Denies any chest pain. He does have chest congestion is not able to bring up any phlegm. No dysuria or diarrhea. His shortness of breath is most exacerbated when he is trying to move. Patient is not vaccinated against COVID-19 Social history: Non-smoker, denies any illicit drug use Allergies Allergy/AdvReac Type Severity Reaction Status Date / Time No Known Allergies Allergy Unverified 06/07/21 21:08 Home Medications Medication Instructions Recorded Confirmed Type azithromycin 250 mg tablet 250 mg PO DAILY 06/07/21 06/07/21 History clonidine 0.1 mg PO BID 06/07/21 06/07/21 History dexamethasone 6 mg tablet 6 mg PO DAILY 06/07/21 06/07/21 History (Decadron) Patient History Medical History (Updated 06/10/21 @ 16:39 by Aby Brownlee MD) Hyperlipidemia Hypertension Obesity Surgical History (Updated 06/08/21 @ 01:57 by Marleen Laws DO) History of removal of cyst Social History Smoking Status: Never smoker Hx Alcohol Use: No Hx Substance Use: No Preferred Language: German Communication Ability: Effective Beliefs That Will Affect Care: None Current Living Situation: Spouse Other Information That Helps Us Care for You: No Feels Safe at Home: Yes Safety Concerns: Feels Safe At This Time Assistive Devices: Oxygen - Continuous Review of Systems Review of Systems: All systems reviewed & are unremarkable except as noted in HPI & below Physical Exam Physical Exam: Constitutional: No acute distress HEENT: EOMI, PERRLA Respiratory system: Decreased air entry bilaterally, no wheeze, no abdominal positive crackles bilateral lower lobes CVS: S1-S2 positive, no murmurs or gallops Abdomen: Soft, nontender, nondistended, positive bowel sounds x4, obese Extremities: +2 pulses bilaterally radialis/ dorsalis pedis, no cyanosis, no edema Neuro: Awake alert oriented x3 Psych: Normal mood and affect G/U: No Haider Skin: no rashes, warm and dry Lymphatic: no cervical or axillary lymphadenopathy Results & Data Results & Data ([facility]) Vital Signs (Past 12 Hours) Vital Signs Temp Pulse Resp BP Pulse Ox 06/10/21 07:48 36.5 C 77 19 121/73 91 06/10/21 09:33 06/10/21 09:33 PG Care Time/CCT Total # of Minutes Spent Total Time Spent with Patient: Total time spent is greater than 50% in coordination of care (as documented) at patient's floor/unit and/or counseling patient: Coding Level of Care Code 53269 Inpt Consult Level 4 Diagnoses Acute respiratory failure with hypoxia J96.01 Pneumonia J18.9 Laterality: bilateral Lung location: unspecified part of lung Pneumonia type: due to unspecified organism COVID-19 U07.1 SOB (shortness of breath) R06.02
--- NOTE | 2021-06-10 15:34 | XRay Report ---
XR chest 1V portable CLINICAL HISTORY: covid 19 COMPARISON STUDY: Chest radiograph June 07, 2021. FINDINGS: No pneumothorax or pleural effusion is identified. There has been mild progression of moder ate bilateral airspace opacities since prior examination. Mild cardiomegaly is noted. This is unchang ed. There is no evidence for pulmonary edema. Prominence of both aris is noted. This may be due to ly mphadenopathy. This study is mildly compromised by motion artifact. IMPRESSION: 1. Slight progression of moderate bilateral airspace opacities suggestive of viral pneumonia. 2. Stable cardiomegaly. ACT 112: Negative or not required by law. Electronically signed by: Patric Coon M.D. 06/10/2021 3:33 PM
--- NOTE | 2021-06-10 16:00 | Electrocardiogram Report ---
Test Reason : Blood Pressure : / mmHG Vent. Rate : 101 BPM Atrial Rate : 101 BPM P-R Int : 158 ms QRS Dur : 092 ms QT Int : 342 ms P-R-T Axes : 028 032 034 degrees QTc Int : 443 ms Sinus tachycardia Nonspecific T wave abnormality Abnormal ECG No previous ECGs available Confirmed by Jeffry Howell ([id number]) on 06/10/2021 4:00:26 PM Referred By: REFERRED SELF Confirmed By:Jeffry Howell
[2021-06-10] MEDS: REMDESIVIR 100 MG in SODIUM CHLORIDE 0.9% 230 ML IV SCH (20:45)
[2021-06-10] MEDS: SODIUM CHLORIDE 0.9% 10ML FLUSH IV SCH (22:02)
--- NOTE | 2021-06-10 22:31 | Communication Note ---
Date of Service: June 10, 2021 Contacted by bedside staff regarding BiPAP trial overnight. Upon review of pulmonology notation from earlier today, to be trialed on BiPAP at night and wi th shortness of breath given his morbid obesity/SARAHY in the setting of COVID-19. Placed orders for BiPAP per pulm recommendations. Resident Activity Tracking Resident Involvement: Resident Care Provided Care Provided: Adult Hospital Medicine
--- NOTE | 2021-06-10 22:59 | Hospitalist Progress Note ---
Date of Service June 10, 2021 Assessment & Plan (1) COVID-19: Plan: 35-year-old male with history of obesity, hypertension presenting with COVID-19 pneumonia. Patient has been ill approximately 1 week. Presents with cough, fatigue, shortness of breath. He was hypoxic on arrival to 89% on room air as well as tachypneic with respiratory rate of 28. Patient has been on azithromycin as well as dexamethasone 6 mg oral daily x5-day course which were started on 06/05/2021. Risk factors for severe disease include morbid obesity Patient is unvaccinated Admit to medical Maintain isolation precautions for Covid Continue supplemental oxygen as needed with goal saturation of greater than 94% Prone positioning as tolerated procal is negative, will continue Dexamethasone 6 mg IV daily will continue Remdesivir per 5-day protocol Incentive spirometry as tolerated Albuterol HFA as needed Tylenol as needed for pain or fever Mucinex 1200 mg twice daily Lovenox 80 mg twice daily for DVT prophylaxis in setting of Covid - Patient is not improving however patient is now on 8 liters 02 supplementation oxymask. -Consulted pulmonary doctor. will keep patient euvolemic to negative. -Will place on BIPAP at night (2) Hypertension: Plan: Blood pressure is slightly elevated. Continue clonidine 0.1 mg p.o. twice daily. This is patient's outpatient medication. Uncertain if he has been tried on other agents prior to initiation of clonidine. Alternative agent should be considered Continue to monitor (3) Elevated blood sugar: Plan: Patient with elevated blood sugar of 223. No formal diagnosis of diabetes. Has been on steroids as an outpatient. We will check hemoglobin A1c with next blood draw Lantus 10 units twice daily, insulin sliding scale Goal blood sugar 100-1 40 Plan: FENHep-Lock, monitor electrolytes and replete as needed, heart healthy diet as tolerated ProphylaxisLovenox 80 mg twice daily Codefull per discussion with patient Admission and Anticipated Discharge Date Admission Date: June 07, 2021 Subjective 35 yo male reports feeling no signifcant improvement. Patient states he is trying to prone more. Review of Systems Review of Systems: All systems reviewed & are unremarkable except as noted in HPI & below Physical Exam Physical Exam: General: patient ill in appearance, NAD, AA&O x 4 Skin: warm, dry, intact, no rashes or lesions HEENT: NC/AT, PERRL, EOMI, anicteric sclera, conjunctiva without injection, external ear normal to inspection and nontender, nares patent, moist mucus membranes, dentition intact, no oropharyngeal lesions, neck supple, trachea midline, no LAD, no thyromegaly, no JVD Heart: +S1/S2, regular, no m/r/g Lungs: equal air entry bilaterally, fine crackles present in bilateral bases Abd: +BS, soft, NT/ND, no masses/organomegaly/ascites Ext: warm, 2+ pulses in UE/LE bilaterally, no clubbing/cyanosis or edema Neuro: nonfocal, patient AA&O x 4, speech intact, no facial droop, moving all extremities on command with equal strength 5/5 Results & Data Results & Data ([facility]) Vital Signs (Past 12 Hours) Vital Signs Temp Pulse Resp BP Pulse Ox 06/10/21 20:57 36.6 C 81 40 H 165/92 H 87 L 06/10/21 15:25 36.8 C 85 20 157/91 H 90 PG Care Time/CCT Total # of Minutes Spent Total Time Spent with Patient: Total time spent is greater than 50% in coordination of care (as documented) at patient's floor/unit and/or counseling patient: Coding Level of Care Code 76698 Subseq Hosp Care Lvl 3 Diagnoses COVID-19 U07.1 Hypertension I10 Elevated blood sugar R73.9 Time Spent (min) 35
[2021-06-11] MEDS: ENOXAPARIN 80 MG/0.8 ML SYR SQ SCH ×2 (06:01→17:44)
[2021-06-11] MEDS: dexAMETHasone 6 MG in SYRINGE 0 ML IV SCH (08:18)
[2021-06-11] MEDS: cloNIDine HCL 0.1 MG TAB PO SCH ×2 (08:19→20:18)
[2021-06-11] MEDS: guaiFENesin 600 MG TABCR PO SCH ×2 (08:19→20:18)
[2021-06-11] MEDS: INSULIN ASPART 100 UNITS/ML 3 ML PEN SC SCH ×4 (09:00→21:44)
[2021-06-11] MEDS: INSULIN GLARGINE SOLOSTAR 100 UNITS/ML 3 ML PEN SC SCH ×2 (09:11→21:44)
--- NOTE | 2021-06-11 10:26 | Discharge Summary ---
Date of Service June 11, 2021 Admission HPI Per Admitting Provider Saravanan Rowland is a 35-year-old male with history of morbid obesity, hypertension, hyperlipidemia presenting with COVID-19 pneumonia. Patient began to feel ill approximately 1 week ago with cough, fatigue and shortness of breath. He tested positive for Covid in an outpatient facility. He is not vaccinated. His entire family is presently sick with Covid as well however, he is the most ill at this point. He denies chest pain, palpitations, abdominal pain, nausea, vomiting, diarrhea, loss of taste or smell ER coursealbuterol, dexamethasone, normal saline Discharge Data Allergies Allergy/AdvReac Type Severity Reaction Status Date / Time No Known Allergies Allergy Unverified 06/07/21 21:08 Consultations 06/07/21 21:50 ED Decision to Admit Stat 06/10/21 08:45 Consult Pulmonology Routine Hospital Course (1) COVID-19: 35-year-old male with history of obesity, hypertension presenting with COVID-19 pneumonia. Patient has been ill approximately 1 week. Presents with cough, fatigue, shortness of breath. He was hypoxic on arrival to 89% on room air as well as tachypneic with respiratory rate of 28. Patient has been on azithromycin as well as dexamethasone 6 mg oral daily x5-day course which were started on 06/05/2021. Risk factors for severe disease include morbid obesity Patient is unvaccinated Admit to medical Maintain isolation precautions for Covid Continue supplemental oxygen as needed with goal saturation of greater than 94% Prone positioning as tolerated procal is negative, will continue Dexamethasone 6 mg IV daily will continue Remdesivir per 5-day protocol Incentive spirometry as tolerated Albuterol HFA as needed Tylenol as needed for pain or fever Mucinex 1200 mg twice daily Lovenox 80 mg twice daily for DVT prophylaxis in setting of Covid - Patient is not improving however patient is now on 8 liters 02 supplementation oxymask. -Consulted pulmonary doctor. will keep patient euvolemic to negative. -Will place on BIPAP at night (2) Hypertension: Blood pressure is slightly elevated. Continue clonidine 0.1 mg p.o. twice daily. This is patient's outpatient medication. Uncertain if he has been tried on other agents prior to initiation of clonidine. Alternative agent should be considered Continue to monitor (3) Elevated blood sugar: Patient with elevated blood sugar of 223. No formal diagnosis of diabetes. Has been on steroids as an outpatient. We will check hemoglobin A1c with next blood draw Lantus 10 units twice daily, insulin sliding scale Goal blood sugar 100-1 40 FENHep-Lock, monitor electrolytes and replete as needed, heart healthy diet as tolerated ProphylaxisLovenox 80 mg twice daily Codefull per discussion with patient Discharge Plan Discharge Items Reason For Visit: COVID-19 PNA Condition on Discharge: Fair Follow-up/Referrals: PCP,NO [Primary Care Provider] - Medications and DC Order Prescriptions: No Action azithromycin 250 mg Tablet 250 mg PO DAILY RF: 0 dexamethasone [Decadron] 6 mg Tablet 6 mg PO DAILY RF: 0 clonidine 0.1 mg PO BID RF: 0 Admission Data Admit Date/Time: 06/07/21 22:21 Attending Provider: Paul Roberts Admit Provider: Marleen Laws Primary Care Provider: PCP,NO Other Providers: Marleen Laws ; Aby Brownlee Coding Diagnoses COVID-19 U07.1 Hypertension I10 Elevated blood sugar R73.9
[2021-06-11] MEDS ORDERED: FUROSEMIDE 40 MG/4 ML VIAL IV ONE (10:48)
[2021-06-11] MEDS ORDERED: FUROSEMIDE 40 MG in SYRINGE 0 ML IV ONE (11:13)
[2021-06-11] MEDS ORDERED: FUROSEMIDE 40 MG/4 ML VIAL IV SCH (11:30)
--- NOTE | 2021-06-11 15:15 | Pulmonology Progress Note ---
Date of Service June 11, 2021 Assessment & Plan (1) Acute respiratory failure with hypoxia: (2) Pneumonia: Laterality: bilateral Lung location: unspecified part of lung Pneumonia type: due to unspecified organism Qualified Code(s): J18.9 - Pneumonia, unspecified organism (3) COVID-19: (4) SOB (shortness of breath): Plan: Chest x-ray 06/07/2021 personally reviewed: Portable film, poor inspiratory effort, diffuse patchy alveolar opacities appreciated bilaterally left lower lobe --Acute hypoxic respiratory failure Secondary to multilobar COVID-19 pneumonia COVID-19 PCR positive CRP 2.03 Procalcitonin negative Continue with remdesivir for 5 days Continue with dexamethasone for 10 days Continue with O2 supplementation to keep oxygen saturation between 90-92%. Awake proning will be helpful Continue with incentive spirometry Continue with flutter valve. Recommend patient to be kept euvolemic to negative balance --Morbid obesity possible SARAHY BiPAP nightly and as needed shortness of breath Plan: Give the patient 40 mg of Lasix Stick in and out Patient is agreeable to Haider catheter for at least 24-48 hours to have good output Continue with BiPAP nightly and as needed shortness of breath Case was discussed with RN Please note the above document was generated using voice recognition software. It may contain grammatical, syntax or spelling errors.Any formal questions or concerns about the content, text or information contained within the body of this dictation should be directly addressed to the provider for clarification. Admission and Anticipated Discharge Date Admission Date: June 07, 2021 Subjective Patient seen and examined at bedside. No acute distress, vomiting was overnight. Patient does get hypoxia back in the low 80s when he is exerting. At the time of examination he was prone saturating 97% on 9 L I went down to 7 L. Patient has been using incentive spirometry. He was not sure how to use flutter valve. I personally explained to him how flutter valve has to be used. Patient was again emotional today. Emotional support was given to the patient Review of Systems Review of Systems: All systems reviewed & are unremarkable except as noted in Subjective Physical Exam Physical Exam: Constitutional: No acute distress HEENT: EOMI, PERRLA Respiratory system: Decreased air entry bilaterally, no wheeze, no abdominal positive crackles bilateral lower lobes CVS: S1-S2 positive, no murmurs or gallops Abdomen: Soft, nontender, nondistended, positive bowel sounds x4, obese Extremities: +2 pulses bilaterally radialis/ dorsalis pedis, no cyanosis, no edema Neuro: Awake alert oriented x3 Psych: Normal mood and affect G/U: No Haider Skin: no rashes, warm and dry Lymphatic: no cervical or axillary lymphadenopathy Results & Data Results & Data ([facility]) Vital Signs (Past 12 Hours) Vital Signs Temp Pulse Pulse Resp BP BP Pulse Ox 06/11/21 11:45 36.8 C 75 21 132/84 92 06/11/21 08:00 67 06/11/21 07:19 36.8 C 70 19 128/82 94 06/11/21 03:34 36.6 C 64 24 120/73 91 06/10/21 09:33 06/10/21 09:33 PG Care Time/CCT Total # of Minutes Spent Total Time Spent with Patient: Total time spent is greater than 50% in coordination of care (as documented) at patient's floor/unit and/or counseling patient: Coding Level of Care Code 38357 Subseq Hosp Care Lvl 3 Diagnoses Acute respiratory failure with hypoxia J96.01 Pneumonia J18.9 Laterality: bilateral Lung location: unspecified part of lung Pneumonia type: due to unspecified organism COVID-19 U07.1 SOB (shortness of breath) R06.02
[2021-06-11] MEDS: REMDESIVIR 100 MG in SODIUM CHLORIDE 0.9% 230 ML IV SCH (20:16)
[2021-06-11] MEDS: SODIUM CHLORIDE 0.9% 10ML FLUSH IV SCH (21:33)
--- NOTE | 2021-06-11 22:11 | Hospitalist Progress Note ---
Date of Service June 11, 2021 Assessment & Plan (1) COVID-19: Plan: 35-year-old male with history of obesity, hypertension presenting with COVID-19 pneumonia. Patient has been ill approximately 1 week. Presents with cough, fatigue, shortness of breath. He was hypoxic on arrival to 89% on room air as well as tachypneic with respiratory rate of 28. Patient has been on azithromycin as well as dexamethasone 6 mg oral daily x5-day course which were started on 06/05/2021. Risk factors for severe disease include morbid obesity Patient is unvaccinated Admit to medical Maintain isolation precautions for Covid Continue supplemental oxygen as needed with goal saturation of greater than 94% Prone positioning as tolerated procal is negative, will continue Dexamethasone 6 mg IV daily will continue Remdesivir per 5-day protocol Incentive spirometry as tolerated Albuterol HFA as needed Tylenol as needed for pain or fever Mucinex 1200 mg twice daily Lovenox 80 mg twice daily for DVT prophylaxis in setting of Covid - Patient is not improving however patient is now on 8 liters 02 supplementation oxymask. -Consulted pulmonary doctor. will keep patient euvolemic to negative. -Will place on BIPAP at night -Patient is now on 7 liters oxymask. responding to diuresis (2) Hypertension: Plan: Blood pressure is slightly elevated. Continue clonidine 0.1 mg p.o. twice daily. This is patient's outpatient medication. Uncertain if he has been tried on other agents prior to initiation of clonidine. Alternative agent should be considered Continue to monitor (3) Elevated blood sugar: Plan: Patient with elevated blood sugar of 223. No formal diagnosis of diabetes. Has been on steroids as an outpatient. We will check hemoglobin A1c with next blood draw Lantus 10 units twice daily, insulin sliding scale Goal blood sugar 100-1 40 Plan: FENHep-Lock, monitor electrolytes and replete as needed, heart healthy diet as tolerated ProphylaxisLovenox 80 mg twice daily Codefull per discussion with patient Admission and Anticipated Discharge Date Admission Date: June 07, 2021 Subjective Patient reports feeling tired. He is agreeable to intubation if needed but understands he is tolerated the oxymask. Review of Systems Review of Systems: All systems reviewed & are unremarkable except as noted in HPI & below Physical Exam Physical Exam: General: patient ill in appearance, NAD, AA&O x 4 Skin: warm, dry, intact, no rashes or lesions HEENT: NC/AT, PERRL, EOMI, anicteric sclera, conjunctiva without injection, external ear normal to inspection and nontender, nares patent, moist mucus membranes, dentition intact, no oropharyngeal lesions, neck supple, trachea midline, no LAD, no thyromegaly, no JVD Heart: +S1/S2, regular, no m/r/g Lungs: equal air entry bilaterally, fine crackles present in bilateral bases Abd: +BS, soft, NT/ND, no masses/organomegaly/ascites Ext: warm, 2+ pulses in UE/LE bilaterally, no clubbing/cyanosis or edema Neuro: nonfocal, patient AA&O x 4, speech intact, no facial droop, moving all extremities on command with equal strength 5/5 Results & Data Results & Data ([facility]) Vital Signs (Past 12 Hours) Vital Signs Temp Pulse Resp BP Pulse Ox 06/11/21 19:00 36.6 C 88 18 135/75 92 06/11/21 16:02 36.7 C 82 20 121/73 92 06/11/21 11:45 36.8 C 75 21 132/84 92 PG Care Time/CCT Total # of Minutes Spent Total Time Spent with Patient: Total time spent is greater than 50% in coordination of care (as documented) at patient's floor/unit and/or counseling patient: Coding Level of Care Code 69759 Subseq Hosp Care Lvl 2 Diagnoses COVID-19 U07.1 Hypertension I10 Elevated blood sugar R73.9 Time Spent (min) 25
[2021-06-12] MEDS: ACETAMINOPHEN 325 MG TAB PO PRN ×2 (04:35→23:15)
[2021-06-12] MEDS: ENOXAPARIN 80 MG/0.8 ML SYR SQ SCH ×2 (05:36→17:28)
[2021-06-12 07:17] LABS: Hematocrit (blood only) 46.4 % (42-52); Mean Corpuscular Hemoglobin 29.7 pg (25-34); Mean Corpuscular Hgb Conc 34.5 g/dL (32-36); Mean Corpuscular Volume 86.1 fL (80-100); Mean Platelet Volume 8.8 fL (7.4-10.4); Platelet Count 299 K/uL (130-400); RDW Coefficient of Variation 13.6 % (11.5-14.5); RDW Standard Deviation 42.6 fL (36.4-46.3); Red Blood Count 5.39 M/uL (4.7-6.1)
[2021-06-12 07:44] LABS: BUN Creatinine Ratio 32.3 (10-20); Calcium 8.6 mg/dl (8.5-10.1); Creatinine Clr Calc Pharmacy 168.4 ml/min; Est GFR (African American) 126.6 ml/min; Est GFR (Non-African American) 109.2 ml/min; Potassium 3.7 mmol/L (3.5-5.1)
[2021-06-12] MEDS ORDERED: FUROSEMIDE 20 MG in SYRINGE 0 ML IV ONE (08:28)
[2021-06-12] MEDS ORDERED: POTASSIUM CHLORIDE CRTAB 20 MEQ TABCR PO STA (08:29)
[2021-06-12] MEDS: INSULIN GLARGINE SOLOSTAR 100 UNITS/ML 3 ML PEN SC SCH ×2 (09:00→20:50)
[2021-06-12] MEDS: INSULIN ASPART 100 UNITS/ML 3 ML PEN SC SCH ×4 (09:00→20:31)
[2021-06-12] MEDS ORDERED: FUROSEMIDE 40 MG/4 ML VIAL IV ONE ×2 (09:00→10:00)
[2021-06-12] MEDS: dexAMETHasone 6 MG in SYRINGE 0 ML IV SCH (09:57)
[2021-06-12] MEDS: guaiFENesin 600 MG TABCR PO SCH ×2 (09:57→20:40)
[2021-06-12] MEDS: cloNIDine HCL 0.1 MG TAB PO SCH ×2 (09:57→20:41)
--- NOTE | 2021-06-12 14:02 | Pulmonology Progress Note ---
Date of Service June 12, 2021 Assessment & Plan (1) Acute respiratory failure with hypoxia: (2) Pneumonia: Laterality: bilateral Lung location: unspecified part of lung Pneumonia type: due to unspecified organism Qualified Code(s): J18.9 - Pneumonia, unspecified organism (3) COVID-19: (4) SOB (shortness of breath): Plan: Chest x-ray 06/07/2021 personally reviewed: Portable film, poor inspiratory effort, diffuse patchy alveolar opacities appreciated bilaterally left lower lobe --Acute hypoxic respiratory failure Secondary to multilobar COVID-19 pneumonia COVID-19 PCR positive CRP 2.03 Procalcitonin negative Continue with remdesivir for 5 days Continue with dexamethasone for 10 days Not a candidate for Tocilizumab given low CRP Continue with O2 supplementation to keep oxygen saturation between 90-92%. Awake proning will be helpful Continue with incentive spirometry Continue with flutter valve. Recommend patient to be kept euvolemic to negative balance --Morbid obesity possible SARAHY BiPAP nightly and as needed shortness of breath Plan: In/out: -1725, urine output 3350 Give another 20 mg of Lasix today Daily with incentive spirometry Proning Please note the above document was generated using voice recognition software. It may contain grammatical, syntax or spelling errors.Any formal questions or concerns about the content, text or information contained within the body of this dictation should be directly addressed to the provider for clarification. Admission and Anticipated Discharge Date Admission Date: June 07, 2021 Subjective Patient seen and examined at bedside. No acute distress. Just finished breakfast prior to me examining. He says he feels the same. Does get short of breath on minimal exertion. BiPAP at night. Has been urinating well with the help of Lasix. Been bringing up phlegm with help flutter valve. Using incentive spirometer but he is able to go need to find an MRI. Review of Systems Review of Systems: All systems reviewed & are unremarkable except as noted in Subjective Physical Exam Physical Exam: Constitutional: No acute distress HEENT: EOMI, PERRLA Respiratory system: Decreased air entry bilaterally, no wheeze, no abdominal positive crackles bilateral lower lobes CVS: S1-S2 positive, no murmurs or gallops Abdomen: Soft, nontender, nondistended, positive bowel sounds x4, obese Extremities: +2 pulses bilaterally radialis/ dorsalis pedis, no cyanosis, no edema Neuro: Awake alert oriented x3 Psych: Normal mood and affect G/U: Positive Haider Skin: no rashes, warm and dry Lymphatic: no cervical or axillary lymphadenopathy Results & Data Results & Data ([facility]) Vital Signs (Past 12 Hours) Vital Signs Temp Pulse Pulse Resp BP BP Pulse Ox 06/12/21 11:37 36.8 C 81 147/91 H 91 06/12/21 08:00 65 06/12/21 07:53 36.7 C 70 20 144/79 H 90 06/12/21 04:05 37.0 C 78 18 120/79 89 L 06/12/21 06:46 06/12/21 06:46 PG Care Time/CCT Total # of Minutes Spent Total Time Spent with Patient: Total time spent is greater than 50% in coordination of care (as documented) at patient's floor/unit and/or counseling patient: Coding Level of Care Code 00245 Subseq Hosp Care Lvl 3 Diagnoses Acute respiratory failure with hypoxia J96.01 Pneumonia J18.9 Laterality: bilateral Lung location: unspecified part of lung Pneumonia type: due to unspecified organism COVID-19 U07.1 SOB (shortness of breath) R06.02
--- NOTE | 2021-06-12 20:48 | Hospitalist Progress Note ---
Date of Service June 12, 2021 Assessment & Plan (1) COVID-19: Plan: 35-year-old male with history of obesity, hypertension presenting with COVID-19 pneumonia. Patient has been ill approximately 1 week. Presents with cough, fatigue, shortness of breath. He was hypoxic on arrival to 89% on room air as well as tachypneic with respiratory rate of 28. Patient has been on azithromycin as well as dexamethasone 6 mg oral daily x5-day course which were started on 06/05/2021. Risk factors for severe disease include morbid obesity Patient is unvaccinated Admit to medical Maintain isolation precautions for Covid Continue supplemental oxygen as needed with goal saturation of greater than 94% Prone positioning as tolerated procal is negative, will continue Dexamethasone 6 mg IV daily will continue Remdesivir per 5-day protocol Incentive spirometry as tolerated Albuterol HFA as needed Tylenol as needed for pain or fever Mucinex 1200 mg twice daily Lovenox 80 mg twice daily for DVT prophylaxis in setting of Covid - Patient is not improving however patient is now on 8 liters 02 supplementation oxymask. -Consulted pulmonary doctor. will keep patient euvolemic to negative. -Will place on BIPAP at night -Patient is now on 7 liters oxymask. responding to diuresis continue to have patient prone, patient has been resistant to this idea as he states he is uncomfortable. will cancel heart monitor and hopefully this may help patient lay prone. (2) Hypertension: Plan: Blood pressure is slightly elevated. Continue clonidine 0.1 mg p.o. twice daily. This is patient's outpatient medication. Uncertain if he has been tried on other agents prior to initiation of clonidine. Alternative agent should be considered Continue to monitor (3) Elevated blood sugar: Plan: Patient with elevated blood sugar of 223. No formal diagnosis of diabetes. Has been on steroids as an outpatient. We will check hemoglobin A1c with next blood draw Lantus 10 units twice daily, insulin sliding scale Goal blood sugar 100-1 40 Plan: FENHep-Lock, monitor electrolytes and replete as needed, heart healthy diet as tolerated ProphylaxisLovenox 80 mg twice daily Codefull per discussion with patient Admission and Anticipated Discharge Date Admission Date: June 07, 2021 Subjective 35 yo male reports no significant improvement. Review of Systems Review of Systems: All systems reviewed & are unremarkable except as noted in HPI & below Physical Exam Physical Exam: General: patient ill in appearance, NAD, AA&O x 4 Skin: warm, dry, intact, no rashes or lesions HEENT: NC/AT, PERRL, EOMI, anicteric sclera, conjunctiva without injection, external ear normal to inspection and nontender, nares patent, moist mucus membranes, dentition intact, no oropharyngeal lesions, neck supple, trachea midline, no LAD, no thyromegaly, no JVD Heart: +S1/S2, regular, no m/r/g Lungs: equal air entry bilaterally, fine crackles present in bilateral bases Abd: +BS, soft, NT/ND, no masses/organomegaly/ascites Ext: warm, 2+ pulses in UE/LE bilaterally, no clubbing/cyanosis or edema Neuro: nonfocal, patient AA&O x 4, speech intact, no facial droop, moving all extremities on command with equal strength 5/5 Results & Data Results & Data ([facility]) Vital Signs (Past 12 Hours) Vital Signs Temp Pulse Resp BP Pulse Ox 06/12/21 15:10 36.9 C 78 22 138/83 93 06/12/21 11:37 36.8 C 81 147/91 H 91 PG Care Time/CCT Total # of Minutes Spent Total Time Spent with Patient: Total time spent is greater than 50% in coordination of care (as documented) at patient's floor/unit and/or counseling patient: Coding Level of Care Code 85461 Subseq Hosp Care Lvl 2 Diagnoses COVID-19 U07.1 Hypertension I10 Elevated blood sugar R73.9 Time Spent (min) 25
[2021-06-13] MEDS: ENOXAPARIN 80 MG/0.8 ML SYR SQ SCH ×2 (05:34→17:30)
[2021-06-13] MEDS: guaiFENesin 600 MG TABCR PO SCH ×2 (08:20→20:44)
[2021-06-13] MEDS: cloNIDine HCL 0.1 MG TAB PO SCH ×2 (08:20→20:45)
[2021-06-13] MEDS: dexAMETHasone 6 MG in SYRINGE 0 ML IV SCH (08:27)
[2021-06-13] MEDS: INSULIN ASPART 100 UNITS/ML 3 ML PEN SC SCH ×4 (08:32→21:13)
[2021-06-13] MEDS: INSULIN GLARGINE SOLOSTAR 100 UNITS/ML 3 ML PEN SC SCH ×2 (08:32→21:14)
--- NOTE | 2021-06-13 08:58 | XRay Report ---
SINGLE VIEW CHEST CLINICAL HISTORY: Covid pneumonia. FINDINGS: An AP, portable, upright chest radiograph is compared to study dated 06/10/2021. The examina tion is degraded by portable technique and apical lordotic positioning. The cardiomediastinal silhoue tte is unremarkable. Multifocal airspace consolidation has not significantly changed from previous. N o large pleural effusion or pneumothorax is identified. The bony thorax is grossly intact. IMPRESSION: Multifocal airspace consolidation has not significantly changed as compared 06/10/2021. ACT 112: Negative or not required by law. Electronically signed by: Devang Holbrook M.D. 06/13/2021 8:57 AM
--- NOTE | 2021-06-13 09:03 | Pulmonology Progress Note ---
Date of Service June 13, 2021 Assessment & Plan (1) Acute respiratory failure with hypoxia: (2) Pneumonia: Laterality: bilateral Lung location: unspecified part of lung Pneumonia type: due to unspecified organism Qualified Code(s): J18.9 - Pneumonia, unspecified organism (3) COVID-19: (4) SOB (shortness of breath): Plan: Chest x-ray 06/07/2021 personally reviewed: Portable film, poor inspiratory effort, diffuse patchy alveolar opacities appreciated bilaterally left lower lobe --Acute hypoxic respiratory failure Secondary to multilobar COVID-19 pneumonia COVID-19 PCR positive CRP 2.03 Procalcitonin negative Continue with remdesivir for 5 days Continue with dexamethasone for 10 days Not a candidate for Tocilizumab given low CRP Continue with O2 supplementation to keep oxygen saturation between 90-92%. Awake proning will be helpful Continue with incentive spirometry Continue with flutter valve. Recommend patient to be kept euvolemic to negative balance --Morbid obesity possible SARAHY BiPAP nightly and as needed shortness of breath Plan: In/out: 2019, urine output 3300, Patient still +1.8 L since coming to the hospital Initially we did not have good output so most likely he is negative balance by now 20 mg of Lasix to be given today No BMP from today. I will order a BMP to look at the creatinine as well as potassium Patient did not use BiPAP overnight. If he is not able to tolerate BiPAP I would recommend CPAP to be started at 6 and then may be increased to 8 if he is tolerating it. Please note the above document was generated using voice recognition software. It may contain grammatical, syntax or spelling errors.Any formal questions or concerns about the content, text or information contained within the body of this dictation should be directly addressed to the provider for clarification. Admission and Anticipated Discharge Date Admission Date: June 07, 2021 Subjective Patient seen and examined at bedside. No acute distress, no adverse events overnight. Patient was prone he was on 9 L saturating 95%. I went down to 7 L. He says he is feeling better compared to yesterday. Has been using incentive spirometry goes up to 1 L. Encouraged to go up to 1500 mL. Good appetite. Denies any nausea or vomiting. Did not use BiPAP overnight. I did explain to him the importance of using it Review of Systems Review of Systems: All systems reviewed & are unremarkable except as noted in Subjective Physical Exam Physical Exam: Constitutional: No acute distress HEENT: EOMI, PERRLA Respiratory system: Decreased air entry bilaterally, no wheeze, no abdominal positive crackles bilateral lower lobes CVS: S1-S2 positive, no murmurs or gallops Abdomen: Soft, nontender, nondistended, positive bowel sounds x4, obese Extremities: +2 pulses bilaterally radialis/ dorsalis pedis, no cyanosis, no edema Neuro: Awake alert oriented x3 Psych: Normal mood and affect G/U: Positive Haider Skin: no rashes, warm and dry Lymphatic: no cervical or axillary lymphadenopathy Results & Data Results & Data ([facility]) Vital Signs (Past 12 Hours) Vital Signs Temp Pulse Resp BP BP Pulse Ox 06/13/21 07:49 36.7 C 71 22 130/82 95 06/12/21 22:54 36.8 C 74 20 122/71 92 06/12/21 06:46 06/12/21 06:46 PG Care Time/CCT Total # of Minutes Spent Total Time Spent with Patient: Total time spent is greater than 50% in coordination of care (as documented) at patient's floor/unit and/or counseling patient: Coding Level of Care Code 80344 Subseq Hosp Care Lvl 3 Diagnoses Acute respiratory failure with hypoxia J96.01 Pneumonia J18.9 Laterality: bilateral Lung location: unspecified part of lung Pneumonia type: due to unspecified organism COVID-19 U07.1 SOB (shortness of breath) R06.02
--- NOTE | 2021-06-13 11:53 | Hospitalist Progress Note ---
Date of Service June 13, 2021 Assessment & Plan (1) COVID-19: Plan: 35-year-old male with history of obesity, hypertension presenting with COVID-19 pneumonia. Patient has been ill approximately 1 week. Presents with cough, fatigue, shortness of breath. He was hypoxic on arrival to 89% on room air as well as tachypneic with respiratory rate of 28. Patient has been on azithromycin as well as dexamethasone 6 mg oral daily x5-day course which were started on 06/05/2021. Risk factors for severe disease include morbid obesity Patient is unvaccinated stable today on oxy mask 7L, no distress but he is tachypneic, using some accessory muscles Dr. Brownlee strongly recommends using BIPAP at night, if he cannot comply then try CPAP continue dexamethasone IV Remdesivir x 5 days want euvolemic to negative fluid balance, use Lasix PRN Lovenox 80 mg twice daily for DVT prophylaxis in setting of Covid (2) Hypertension: Plan: Blood pressure is controlled Continue clonidine 0.1 mg p.o. twice daily. This is patient's outpatient medication. Uncertain if he has been tried on other agents prior to initiation of clonidine. (3) Elevated blood sugar: Plan: Patient with elevated blood sugar of 223. No formal diagnosis of diabetes. Has been on steroids as an outpatient. Lantus 10 units twice daily, insulin sliding scale Goal blood sugar 100-1 40 monitor for hypoglycemia, no episodes Plan: FENHep-Lock, monitor electrolytes and replete as needed, heart healthy diet as tolerated ProphylaxisLovenox 80 mg twice daily Codefull per discussion with patient Admission and Anticipated Discharge Date Admission Date: June 07, 2021 Subjective reviewed chart and labs, discussed with Dr. Brownlee he recommends that the patient use BIPAP at night, if he cannot tolerate then CPAP is fine patient is laying prone, breathing well on 7L mask, not in distress he says he has concerns about using the CPAP, he got real dry, coughing and gagging last night no fever, no chills, he is eating and drinking, making a lot of urine no chest pain, + cough with clear sputum, no audible wheezing Review of Systems Review of Systems: All systems reviewed & are unremarkable except as noted in Subjective Respiratory: + cough, + dyspnea, + dyspnea on exertion and + sputum production; no chest congestion and no pain with cough Cardiovascular: no chest pain Gastrointestinal: no nausea, no vomiting, no constipation and no diarrhea/loose stools Physical Exam Constitutional: well developed, well nourished, + ill appearing, + obese and comfortable; no acute distress Neck: trachea midline and + thick neck Respiratory: + cough and + tachypneic; no respiratory distress and does not use accessory muscles Cardiovascular: RRR, no murmur, no edema Gastrointestinal (Abdomen): normal bowel sounds, soft, nontender, no hepatosplenomegaly Musculoskeletal: no cyanosis or clubbing, extremities motor strength 5/5 Skin: no rashes, warm and dry Neurologic: CN's II-XI intact bilaterally, moves all extremities and awake; no focal motor deficits Psychiatric: A+Ox3, euthymic affect Results & Data Results & Data ([facility]) Vital Signs (Past 12 Hours) Vital Signs Temp Pulse Resp BP Pulse Ox 06/13/21 07:49 36.7 C 71 22 130/82 95 Laboratory Results Laboratory Results - last 24 hr 06/12/21 06/12/21 06/13/21 16:31 20:12 07:48 POC Glucose 169 H 138 H 97 06/13/21 11:24 POC Glucose 182 H Medications Administered Current Inpatient Medications Acetaminophen (Acetaminophen 325 Mg Tab) 650 mg PO Q4H PRN PRN Reason: pain/fever Stop: 07/08/21 00:08 Last Admin: 06/12/21 23:15 Dose: 650 mg Documented by: Albuterol (Albuterol Hfa 8 Gm Inhaler) 2 puffs INH Q4H PRN PRN Reason: sob Stop: 07/08/21 00:08 Last Admin: 06/09/21 20:09 Dose: 2 puffs Documented by: Clonidine HCl (Clonidine Hcl 0.1 Mg Tab) 0.1 mg PO BID PILLO Stop: 07/08/21 08:59 Last Admin: 06/13/21 08:20 Dose: 0.1 mg Documented by: Dextrose (Dextrose 50% 50 Ml Syringe) 25 - 50 ml IV UD PRN; Protocol PRN Reason: Hypoglycemia Protocol Stop: 07/08/21 00:08 Enoxaparin Sodium (Enoxaparin 80 Mg/0.8 Ml Syr) 80 mg SQ Q12H PILLO Stop: 07/08/21 01:59 Last Admin: 06/13/21 05:34 Dose: 80 mg Documented by: Glucagon (Glucagon For Inj 1 Mg Vial) 1 mg SQ UD PRN; Protocol PRN Reason: Hypoglycemia Protocol Stop: 07/08/21 00:08 Glucose (Glucose 10 Tabs/Tube) 4 - 8 tabs PO UD PRN; Protocol PRN Reason: Hypoglycemia Protocol Stop: 07/08/21 00:08 Glucose (Glucose 40% Gel 15 Gm Tube) 15 - 30 gm PO UD PRN; Protocol PRN Reason: Hypoglycemia Protocol Stop: 07/08/21 00:08 Guaifenesin (Guaifenesin 600 Mg Tabcr) 1,200 mg PO Q12 PILLO Stop: 07/08/21 08:59 Last Admin: 06/13/21 08:20 Dose: 1,200 mg Documented by: Dexamethasone 6 mg/ Syringe 1.5 mls @ 1 mls/min IV Q24H PILLO Stop: 07/08/21 08:59 Last Admin: 06/13/21 08:27 Dose: 1 mls/min Documented by: Insulin Aspart (Insulin Aspart 100 Units/Ml 3 Ml Pen) 0 units SC ACHS PILLO Stop: 07/08/21 01:59 Last Admin: 06/13/21 08:32 Dose: 2 units Documented by: Insulin Glargine (Insulin Glargine Solostar 100 Units/Ml 3 Ml Pen) 10 units SC BID PILLO Stop: 07/08/21 08:59 Last Admin: 06/13/21 08:32 Dose: 10 units Documented by: Miscellaneous (Carbohydrates For Hypoglycemia ) 15 - 30 gm PO UD PRN PRN Reason: Hypoglycemia Protocol Stop: 07/08/21 00:08 Ondansetron HCl (Ondansetron Inj 2 Mg/Ml 2 Ml Vial) 4 mg IV Q6H PRN PRN Reason: Nausea Stop: 07/08/21 00:08 PG Care Time/CCT Total # of Minutes Spent Total Time Spent with Patient: Total time spent is greater than 50% in coordination of care (as documented) at patient's floor/unit and/or counseling patient: Coding Level of Care Code 54378 Subseq Hosp Care Lvl 2 Diagnoses COVID-19 U07.1 Hypertension I10 Elevated blood sugar R73.9
[2021-06-13] MEDS ORDERED: FUROSEMIDE 20 MG in SYRINGE 0 ML IV ONE (12:30)
[2021-06-13] MEDS ORDERED: FUROSEMIDE 40 MG/4 ML VIAL IV ONE (12:30)
[2021-06-13 13:26] LABS: BUN Creatinine Ratio 30.8 (10-20); Calcium 9.1 mg/dl (8.5-10.1); Creatinine Clr Calc Pharmacy 155.5 ml/min; Est GFR (African American) 116.6 ml/min; Est GFR (Non-African American) 100.6 ml/min; Magnesium 2.4 mg/dl (1.8-2.4); Phosphorus 2.9 mg/dl (2.5-4.9); Potassium 4.8 mmol/L (3.5-5.1)
[2021-06-13] MEDS: ACETAMINOPHEN 325 MG TAB PO PRN (19:45)
[2021-06-14] MEDS: ENOXAPARIN 80 MG/0.8 ML SYR SQ SCH ×2 (05:34→17:23)
[2021-06-14] MEDS ORDERED: FUROSEMIDE 20 MG in SYRINGE 0 ML IV ONE ×2 (07:48→09:00)
--- NOTE | 2021-06-14 07:49 | Pulmonology Progress Note ---
Date of Service June 14, 2021 Assessment & Plan (1) Acute respiratory failure with hypoxia: (2) Pneumonia: Laterality: bilateral Lung location: unspecified part of lung Pneumonia type: due to unspecified organism Qualified Code(s): J18.9 - Pneumonia, unspecified organism (3) COVID-19: (4) SOB (shortness of breath): Plan: Chest x-ray 06/07/2021 personally reviewed: Portable film, poor inspiratory effort, diffuse patchy alveolar opacities appreciated bilaterally left lower lobe --Acute hypoxic respiratory failure Secondary to multilobar COVID-19 pneumonia COVID-19 PCR positive CRP 2.03 Procalcitonin negative Continue with remdesivir for 5 days Continue with dexamethasone for 10 days Not a candidate for Tocilizumab given low CRP Continue with O2 supplementation to keep oxygen saturation between 90-92%. Awake proning will be helpful Continue with incentive spirometry Continue with flutter valve. Recommend patient to be kept euvolemic to negative balance --Morbid obesity possible SARAHY BiPAP nightly and as needed shortness of breath Plan: In/out: - 1580, urine output 2800 20 mg of Lasix ordered for today Patient clinically looks better today. I again advised him to give a trial of BiPAP/CPAP at night as I think he is going to benefit from it a lot. Continue with awake proning. Should DC Haider tomorrow. Please note the above document was generated using voice recognition software. It may contain grammatical, syntax or spelling errors.Any formal questions or concerns about the content, text or information contained within the body of this dictation should be directly addressed to the provider for clarification. Admission and Anticipated Discharge Date Admission Date: June 07, 2021 Subjective Patient seen and examined at bedside. No acute distress, no adverse events overnight. Patient looks more comfortable today. He was lying in the right decubitus position saturating 92% on 7 L. Fair appetite. No nausea or vomiting. No bowel movement since last 2 days. Patient still did not use the BiPAP/CPAP overnight. Importance of using it again explained to the patient. Review of Systems Review of Systems: All systems reviewed & are unremarkable except as noted in Subjective Physical Exam Physical Exam: Constitutional: No acute distress HEENT: EOMI, PERRLA Respiratory system: Decreased air entry bilaterally, no wheeze, no abdominal positive crackles bilateral lower lobes CVS: S1-S2 positive, no murmurs or gallops Abdomen: Soft, nontender, nondistended, positive bowel sounds x4, obese Extremities: +2 pulses bilaterally radialis/ dorsalis pedis, no cyanosis, no edema Neuro: Awake alert oriented x3 Psych: Normal mood and affect G/U: Positive Haider Skin: no rashes, warm and dry Lymphatic: no cervical or axillary lymphadenopathy Results & Data Results & Data ([facility]) Vital Signs (Past 12 Hours) Vital Signs Temp Pulse Resp BP Pulse Ox 06/14/21 07:24 36.9 C 72 20 124/70 98 06/13/21 22:47 36.8 C 70 19 125/70 96 06/12/21 06:46 06/13/21 12:40 PG Care Time/CCT Total # of Minutes Spent Total Time Spent with Patient: Total time spent is greater than 50% in coordination of care (as documented) at patient's floor/unit and/or counseling patient: Coding Level of Care Code 48139 Subseq Hosp Care Lvl 2 Diagnoses Acute respiratory failure with hypoxia J96.01 Pneumonia J18.9 Laterality: bilateral Lung location: unspecified part of lung Pneumonia type: due to unspecified organism COVID-19 U07.1 SOB (shortness of breath) R06.02
[2021-06-14] MEDS ORDERED: FUROSEMIDE 40 MG/4 ML VIAL IV ONE ×2 (08:00→09:00)
[2021-06-14] MEDS: guaiFENesin 600 MG TABCR PO SCH ×2 (08:32→20:42)
[2021-06-14] MEDS: cloNIDine HCL 0.1 MG TAB PO SCH ×2 (08:32→20:41)
[2021-06-14] MEDS: dexAMETHasone 6 MG in SYRINGE 0 ML IV SCH (08:32)
[2021-06-14] MEDS: INSULIN GLARGINE SOLOSTAR 100 UNITS/ML 3 ML PEN SC SCH ×2 (08:52→20:42)
[2021-06-14] MEDS: INSULIN ASPART 100 UNITS/ML 3 ML PEN SC SCH ×4 (08:52→20:42)
--- NOTE | 2021-06-14 10:55 | Hospitalist Progress Note ---
Date of Service June 14, 2021 Assessment & Plan (1) COVID-19: Plan: 35-year-old male with history of obesity, hypertension presenting with COVID-19 pneumonia. Patient has been ill approximately 1 week. Presents with cough, fatigue, shortness of breath. He was hypoxic on arrival to 89% on room air as well as tachypneic with respiratory rate of 28. Patient has been on azithromycin as well as dexamethasone 6 mg oral daily x5-day course which were started on 06/05/2021. Risk factors for severe disease include morbid obesity Patient is unvaccinated stable today on oxy mask 6L, no distress, overall looks better today continue dexamethasone 6mg IV daily x 10 days Remdesivir x 5 days want euvolemic to negative fluid balance, use Lasix PRN, give Lasix 20mg IV today Lovenox 80 mg twice daily for DVT prophylaxis in setting of Covid (2) Hypertension: Plan: Blood pressure is controlled Continue clonidine 0.1 mg p.o. twice daily. This is patient's outpatient medication (3) Elevated blood sugar: Plan: Patient with elevated blood sugar of 223. No formal diagnosis of diabetes. Has been on steroids as an outpatient. Lantus 10 units twice daily, insulin sliding scale Goal blood sugar 100-1 40 monitor for hypoglycemia, no episodes Plan: FENHep-Lock, monitor electrolytes and replete as needed, heart healthy diet as tolerated ProphylaxisLovenox 80 mg twice daily Codefull per discussion with patient Admission and Anticipated Discharge Date Admission Date: June 07, 2021 Subjective patient doing well on 6L oxy mask this morning, laying supine currently but compliant with laying prone eating and drinking really well, no fever, minimal cough he says he really wants to be out of the hospital by Sunday, his mother's is on Sunday he says she just on Sunday, suspected to be COVID, they found her at home but she was sick just like him I cannot guarantee that he will be out but will make every effort to get him home, can go home on oxygen labs reviewed, stable gave lasix 20mg IV this morning Review of Systems Review of Systems: All systems reviewed & are unremarkable except as noted in Subjective Constitutional: + weakness; no fever, no chills, no sweats and no fatigue Respiratory: + cough, + dyspnea and + dyspnea on exertion Cardiovascular: no chest pain and no edema Gastrointestinal: no abdominal pain, no nausea, no vomiting, no constipation and no diarrhea/loose stools Physical Exam Constitutional: well developed, well nourished, + obese and comfortable; no acute distress and not ill appearing Neck: trachea midline and + thick neck Respiratory: + cough and + tachypneic; no respiratory distress and does not use accessory muscles Auscultation: no crackles and no wheezes Cardiovascular: RRR, no murmur, no edema Gastrointestinal (Abdomen): normal bowel sounds, soft, nontender, no hepatosplenomegaly Musculoskeletal: no cyanosis or clubbing, extremities motor strength 5/5 Skin: no rashes, warm and dry Neurologic: CN's II-XI intact bilaterally, moves all extremities and awake; no focal motor deficits Psychiatric: A+Ox3, euthymic affect Results & Data Results & Data ([facility]) Vital Signs (Past 12 Hours) Vital Signs Temp Pulse Resp BP Pulse Ox 06/14/21 07:24 36.9 C 72 20 124/70 98 Laboratory Results Laboratory Results - last 24 hr 06/10/21 06/13/21 06/13/21 20:23 11:24 12:40 Sodium 135 L Potassium 4.8 D Chloride 103 Carbon Dioxide 27 Anion Gap 5.0 BUN 30 H Creatinine 0.96 Est Cr Clr Drug Dosing 155.5 Est GFR ( Amer) 116.6 Est GFR (Non-Af Amer) 100.6 BUN/Creatinine Ratio 30.8 H Glucose 149 H POC Glucose 145 H 182 H Calcium 9.1 Phosphorus 2.9 Magnesium 2.4 06/13/21 06/13/21 06/14/21 16:30 20:13 07:21 Sodium Potassium Chloride Carbon Dioxide Anion Gap BUN Creatinine Est Cr Clr Drug Dosing Est GFR ( Amer) Est GFR (Non-Af Amer) BUN/Creatinine Ratio Glucose POC Glucose 131 H 114 H 85 Calcium Phosphorus Magnesium Medications Administered Current Inpatient Medications Acetaminophen (Acetaminophen 325 Mg Tab) 650 mg PO Q4H PRN PRN Reason: pain/fever Stop: 07/08/21 00:08 Last Admin: 06/13/21 19:45 Dose: 650 mg Documented by: Albuterol (Albuterol Hfa 8 Gm Inhaler) 2 puffs INH Q4H PRN PRN Reason: sob Stop: 07/08/21 00:08 Last Admin: 06/09/21 20:09 Dose: 2 puffs Documented by: Clonidine HCl (Clonidine Hcl 0.1 Mg Tab) 0.1 mg PO BID PILLO Stop: 07/08/21 08:59 Last Admin: 06/14/21 08:32 Dose: 0.1 mg Documented by: Dextrose (Dextrose 50% 50 Ml Syringe) 25 - 50 ml IV UD PRN; Protocol PRN Reason: Hypoglycemia Protocol Stop: 07/08/21 00:08 Enoxaparin Sodium (Enoxaparin 80 Mg/0.8 Ml Syr) 80 mg SQ Q12H PILLO Stop: 07/08/21 01:59 Last Admin: 06/14/21 05:34 Dose: 80 mg Documented by: Glucagon (Glucagon For Inj 1 Mg Vial) 1 mg SQ UD PRN; Protocol PRN Reason: Hypoglycemia Protocol Stop: 07/08/21 00:08 Glucose (Glucose 10 Tabs/Tube) 4 - 8 tabs PO UD PRN; Protocol PRN Reason: Hypoglycemia Protocol Stop: 07/08/21 00:08 Glucose (Glucose 40% Gel 15 Gm Tube) 15 - 30 gm PO UD PRN; Protocol PRN Reason: Hypoglycemia Protocol Stop: 07/08/21 00:08 Guaifenesin (Guaifenesin 600 Mg Tabcr) 1,200 mg PO Q12 PILLO Stop: 07/08/21 08:59 Last Admin: 06/14/21 08:32 Dose: 1,200 mg Documented by: Dexamethasone 6 mg/ Syringe 1.5 mls @ 1 mls/min IV Q24H PILLO Stop: 07/08/21 08:59 Last Admin: 06/14/21 08:32 Dose: 1 mls/min Documented by: Insulin Aspart (Insulin Aspart 100 Units/Ml 3 Ml Pen) 0 units SC ACHS PILLO Stop: 07/08/21 01:59 Last Admin: 06/14/21 08:52 Dose: 2 units Documented by: Insulin Glargine (Insulin Glargine Solostar 100 Units/Ml 3 Ml Pen) 10 units SC BID PILLO Stop: 07/08/21 08:59 Last Admin: 06/14/21 08:52 Dose: 10 units Documented by: Miscellaneous (Carbohydrates For Hypoglycemia ) 15 - 30 gm PO UD PRN PRN Reason: Hypoglycemia Protocol Stop: 07/08/21 00:08 Ondansetron HCl (Ondansetron Inj 2 Mg/Ml 2 Ml Vial) 4 mg IV Q6H PRN PRN Reason: Nausea Stop: 07/08/21 00:08 PG Care Time/CCT Total # of Minutes Spent Total Time Spent with Patient: Total time spent is greater than 50% in coordination of care (as documented) at patient's floor/unit and/or counseling patient: Coding Level of Care Code 00269 Subseq Hosp Care Lvl 2 Diagnoses COVID-19 U07.1 Hypertension I10 Elevated blood sugar R73.9
[2021-06-15] MEDS: ENOXAPARIN 80 MG/0.8 ML SYR SQ SCH ×2 (05:37→17:20)
[2021-06-15] MEDS ORDERED: FUROSEMIDE 20 MG in SYRINGE 0 ML IV ONE (08:30)
[2021-06-15] MEDS: guaiFENesin 600 MG TABCR PO SCH ×2 (09:01→20:26)
[2021-06-15] MEDS: dexAMETHasone 6 MG in SYRINGE 0 ML IV SCH (09:01)
[2021-06-15] MEDS: cloNIDine HCL 0.1 MG TAB PO SCH ×2 (09:02→20:26)
[2021-06-15] MEDS: INSULIN GLARGINE SOLOSTAR 100 UNITS/ML 3 ML PEN SC SCH ×2 (09:04→20:49)
[2021-06-15] MEDS: INSULIN ASPART 100 UNITS/ML 3 ML PEN SC SCH ×4 (09:05→20:49)
--- NOTE | 2021-06-15 10:31 | Pulmonology Progress Note ---
Date of Service June 15, 2021 Assessment & Plan (1) Acute respiratory failure with hypoxia: (2) Pneumonia: Laterality: bilateral Lung location: unspecified part of lung Pneumonia type: due to unspecified organism Qualified Code(s): J18.9 - Pneumonia, unspecified organism (3) COVID-19: (4) SOB (shortness of breath): Plan: Chest x-ray 06/07/2021 personally reviewed: Portable film, poor inspiratory effort, diffuse patchy alveolar opacities appreciated bilaterally left lower lobe --Acute hypoxic respiratory failure Secondary to multilobar COVID-19 pneumonia COVID-19 PCR positive CRP 2.03 Procalcitonin negative Continue with remdesivir for 5 days Continue with dexamethasone for 10 days Not a candidate for Tocilizumab given low CRP Continue with O2 supplementation to keep oxygen saturation between 90-92%. Awake proning will be helpful Continue with incentive spirometry Continue with flutter valve. Recommend patient to be kept euvolemic to negative balance --Morbid obesity possible SARAHY BiPAP nightly and as needed shortness of breath Plan: In/out: -1400, urine output 2600 Recommend discontinue Haider later today. Patient clinically doing better. Complete the course of dexamethasone for total of 10 days No further recommendation from pulmonary perspective. Please call directly with any questions Case discussed with Dr. Cordova Please note the above document was generated using voice recognition software. It may contain grammatical, syntax or spelling errors.Any formal questions or concerns about the content, text or information contained within the body of this dictation should be directly addressed to the provider for clarification. Admission and Anticipated Discharge Date Admission Date: June 07, 2021 Subjective Patient seen and examined at bedside. No acute distress, no adverse events overnight. Patient did give another trial to CPAP but he was not able to tolerate it. Used it only for 1 and half hours. He is feeling better. The spirometry is going up to 2000 mL. He was saturating 91% on 3 L facemask while sitting on the chair. Good appetite. Denies any chest pain. Review of Systems Review of Systems: All systems reviewed & are unremarkable except as noted in Subjective Physical Exam Physical Exam: Constitutional: No acute distress HEENT: EOMI, PERRLA Respiratory system: Decreased air entry bilaterally, no wheeze, no abdominal positive crackles bilateral lower lobes CVS: S1-S2 positive, no murmurs or gallops Abdomen: Soft, nontender, nondistended, positive bowel sounds x4, obese Extremities: +2 pulses bilaterally radialis/ dorsalis pedis, no cyanosis, no edema Neuro: Awake alert oriented x3 Psych: Normal mood and affect G/U: Positive Haider Skin: no rashes, warm and dry Lymphatic: no cervical or axillary lymphadenopathy Results & Data Results & Data ([facility]) Vital Signs (Past 12 Hours) Vital Signs Temp Pulse Pulse Resp BP BP Pulse Ox 06/15/21 07:44 36.7 C 65 20 143/84 H 94 06/15/21 05:35 98 06/14/21 23:24 69 18 96 06/14/21 23:06 36.8 C 67 17 106/64 96 06/12/21 06:46 06/13/21 12:40 PG Care Time/CCT Total # of Minutes Spent Total Time Spent with Patient: Total time spent is greater than 50% in coordination of care (as documented) at patient's floor/unit and/or counseling patient: Coding Level of Care Code 11669 Subseq Hosp Care Lvl 2 Diagnoses Acute respiratory failure with hypoxia J96.01 Pneumonia J18.9 Laterality: bilateral Lung location: unspecified part of lung Pneumonia type: due to unspecified organism COVID-19 U07.1 SOB (shortness of breath) R06.02
[2021-06-15] MEDS ORDERED: FUROSEMIDE 40 MG/4 ML VIAL IV ONE (11:03)
[2021-06-15 11:14] LABS: BUN Creatinine Ratio 31.8 (10-20); Calcium 8.9 mg/dl (8.5-10.1); Creatinine Clr Calc Pharmacy 143.1 ml/min; Est GFR (African American) 105.8 ml/min; Est GFR (Non-African American) 91.3 ml/min; Magnesium 2.4 mg/dl (1.8-2.4); Phosphorus 2.9 mg/dl (2.5-4.9); Potassium 4.2 mmol/L (3.5-5.1)
--- NOTE | 2021-06-15 12:18 | Hospitalist Progress Note ---
Date of Service June 15, 2021 Assessment & Plan (1) COVID-19: Plan: 35-year-old male with history of obesity, hypertension presenting with COVID-19 pneumonia. Patient has been ill approximately 1 week. Presents with cough, fatigue, shortness of breath. He was hypoxic on arrival to 89% on room air as well as tachypneic with respiratory rate of 28. Patient has been on azithromycin as well as dexamethasone 6 mg oral daily x5-day course which were started on 06/05/2021. Risk factors for severe disease include morbid obesity Patient is unvaccinated down to room air today, doing much better, no distress at all continue dexamethasone 6mg IV daily until discharge, likely tomorrow Remdesivir x 5 days want euvolemic to negative fluid balance, give Lasix 20mg IV again today, likely can hold tomorrow Lovenox 80 mg twice daily for DVT prophylaxis in setting of Covid tentatively plan for two step tomorrow, try to discharge home (2) Hypertension: Plan: Blood pressure is controlled Continue clonidine 0.1 mg p.o. twice daily. This is patient's outpatient medication (3) Elevated blood sugar: Plan: Patient with elevated blood sugar of 223. No formal diagnosis of diabetes. Has been on steroids as an outpatient. Lantus 10 units twice daily, insulin sliding scale Goal blood sugar 100-1 40 monitor for hypoglycemia, no episodes Plan: FENHep-Lock, monitor electrolytes and replete as needed, heart healthy diet as tolerated ProphylaxisLovenox 80 mg twice daily Codefull per discussion with patient Admission and Anticipated Discharge Date Admission Date: June 07, 2021 Subjective patient titrated down to room air today, big improvement no distress, says he does not feel short of breath continues to respond well to Lasix, will remove jhaveri this afternoon discussed that he would need to be off oxygen for 24 hours and could then consider discharge can get two step tomorrow to see if he needs oxygen on exertion eating well, no fever/chills, no nausea, no diarrhea, no chest pain, + cough Review of Systems Review of Systems: All systems reviewed & are unremarkable except as noted in Subjective Physical Exam Constitutional: well developed, well nourished, + obese and comfortable; no acute distress and not ill appearing Neck: trachea midline and + thick neck Respiratory: normal respiratory effort and + cough; no respiratory distress, does not use accessory muscles and not tachypneic Auscultation: no crackles and no wheezes Cardiovascular: RRR, no murmur, no edema Gastrointestinal (Abdomen): normal bowel sounds, soft, nontender, no hepatosplenomegaly Musculoskeletal: no cyanosis or clubbing, extremities motor strength 5/5 Skin: no rashes, warm and dry Neurologic: CN's II-XI intact bilaterally, moves all extremities and awake; no focal motor deficits Psychiatric: A+Ox3, euthymic affect Results & Data Results & Data ([facility]) Vital Signs (Past 12 Hours) Vital Signs Temp Pulse Resp BP Pulse Ox 06/15/21 11:22 36.6 C 97 H 22 119/75 91 06/15/21 11:21 94 06/15/21 07:44 36.7 C 65 20 143/84 H 94 06/15/21 05:35 98 Laboratory Results Laboratory Results - last 24 hr 06/14/21 06/14/21 06/15/21 16:57 20:09 07:41 Sodium Potassium Chloride Carbon Dioxide Anion Gap BUN Creatinine Est Cr Clr Drug Dosing Est GFR ( Amer) Est GFR (Non-Af Amer) BUN/Creatinine Ratio Glucose POC Glucose 131 H 137 H 83 Calcium Phosphorus Magnesium 06/15/21 06/15/21 10:34 11:21 Sodium 133 L Potassium 4.2 Chloride 102 Carbon Dioxide 26 Anion Gap 5.0 BUN 33 H Creatinine 1.04 Est Cr Clr Drug Dosing 143.1 Est GFR ( Amer) 105.8 Est GFR (Non-Af Amer) 91.3 BUN/Creatinine Ratio 31.8 H Glucose 160 H POC Glucose 152 H Calcium 8.9 Phosphorus 2.9 Magnesium 2.4 Medications Administered Current Inpatient Medications Acetaminophen (Acetaminophen 325 Mg Tab) 650 mg PO Q4H PRN PRN Reason: pain/fever Stop: 07/08/21 00:08 Last Admin: 06/13/21 19:45 Dose: 650 mg Documented by: Albuterol (Albuterol Hfa 8 Gm Inhaler) 2 puffs INH Q4H PRN PRN Reason: sob Stop: 07/08/21 00:08 Last Admin: 06/09/21 20:09 Dose: 2 puffs Documented by: Clonidine HCl (Clonidine Hcl 0.1 Mg Tab) 0.1 mg PO BID PILLO Stop: 07/08/21 08:59 Last Admin: 06/15/21 09:02 Dose: 0.1 mg Documented by: Dextrose (Dextrose 50% 50 Ml Syringe) 25 - 50 ml IV UD PRN; Protocol PRN Reason: Hypoglycemia Protocol Stop: 07/08/21 00:08 Enoxaparin Sodium (Enoxaparin 80 Mg/0.8 Ml Syr) 80 mg SQ Q12H PILLO Stop: 07/08/21 01:59 Last Admin: 06/15/21 05:37 Dose: 80 mg Documented by: Glucagon (Glucagon For Inj 1 Mg Vial) 1 mg SQ UD PRN; Protocol PRN Reason: Hypoglycemia Protocol Stop: 07/08/21 00:08 Glucose (Glucose 10 Tabs/Tube) 4 - 8 tabs PO UD PRN; Protocol PRN Reason: Hypoglycemia Protocol Stop: 07/08/21 00:08 Glucose (Glucose 40% Gel 15 Gm Tube) 15 - 30 gm PO UD PRN; Protocol PRN Reason: Hypoglycemia Protocol Stop: 07/08/21 00:08 Guaifenesin (Guaifenesin 600 Mg Tabcr) 1,200 mg PO Q12 PILLO Stop: 07/08/21 08:59 Last Admin: 06/15/21 09:01 Dose: 1,200 mg Documented by: Dexamethasone 6 mg/ Syringe 1.5 mls @ 1 mls/min IV Q24H PILLO Stop: 07/08/21 08:59 Last Admin: 06/15/21 09:01 Dose: 1 mls/min Documented by: Insulin Aspart (Insulin Aspart 100 Units/Ml 3 Ml Pen) 0 units SC ACHS PILLO Stop: 07/08/21 01:59 Last Admin: 06/15/21 09:05 Dose: 2 units Documented by: Insulin Glargine (Insulin Glargine Solostar 100 Units/Ml 3 Ml Pen) 10 units SC BID PILLO Stop: 07/08/21 08:59 Last Admin: 06/15/21 09:04 Dose: 10 units Documented by: Miscellaneous (Carbohydrates For Hypoglycemia ) 15 - 30 gm PO UD PRN PRN Reason: Hypoglycemia Protocol Stop: 07/08/21 00:08 Ondansetron HCl (Ondansetron Inj 2 Mg/Ml 2 Ml Vial) 4 mg IV Q6H PRN PRN Reason: Nausea Stop: 07/08/21 00:08 PG Care Time/CCT Total # of Minutes Spent Total Time Spent with Patient: Total time spent is greater than 50% in coordination of care (as documented) at patient's floor/unit and/or counseling patient: Coding Level of Care Code 22318 Subseq Hosp Care Lvl 2 Diagnoses COVID-19 U07.1 Hypertension I10 Elevated blood sugar R73.9
[2021-06-16] MEDS: ENOXAPARIN 80 MG/0.8 ML SYR SQ SCH (05:14)
[2021-06-16] MEDS: cloNIDine HCL 0.1 MG TAB PO SCH (08:33)
[2021-06-16] MEDS: dexAMETHasone 6 MG in SYRINGE 0 ML IV SCH (08:33)
[2021-06-16] MEDS: guaiFENesin 600 MG TABCR PO SCH (08:33)
[2021-06-16] MEDS: INSULIN GLARGINE SOLOSTAR 100 UNITS/ML 3 ML PEN SC SCH (08:34)
[2021-06-16] MEDS: INSULIN ASPART 100 UNITS/ML 3 ML PEN SC SCH (08:34)
--- NOTE | 2021-06-16 10:33 | Discharge Summary ---
Date of Service June 16, 2021 Principal Diagnosis COVID 19 pneumonia, acute hypoxic respiratory failure Discharge Exam Constitutional well developed, well nourished, + obese and comfortable; no acute distress and not ill appearing Neck trachea midline and + thick neck Respiratory normal respiratory effort and + cough; no respiratory distress, does not use accessory muscles and not tachypneic Auscultation: no crackles and no wheezes Cardiovascular RRR, no murmur, no edema Gastrointestinal (Abdomen) normal bowel sounds, soft, nontender, no hepatosplenomegaly Musculoskeletal no cyanosis or clubbing, extremities motor strength 5/5 Skin no rashes, warm and dry Neurologic CN's II-XI intact bilaterally, moves all extremities and awake; no focal motor deficits Psychiatric A+Ox3, euthymic affect Discharge Data Allergies Allergy/AdvReac Type Severity Reaction Status Date / Time No Known Allergies Allergy Unverified 06/07/21 21:08 Consultations 06/07/21 21:50 ED Decision to Admit Stat 06/10/21 08:45 Consult Pulmonology Routine Hospital Course (1) COVID-19: 35-year-old male with history of obesity, hypertension presenting with COVID-19 pneumonia. Patient has been ill approximately 1 week. Presents with cough, fatigue, shortness of breath. He was hypoxic on arrival to 89% on room air as well as tachypneic with respiratory rate of 28. Patient has been on azithromycin as well as dexamethasone 6 mg oral daily x5-day course which were started on 06/05/2021. Risk factors for severe disease include morbid obesity Patient is unvaccinated down to room air for well over 24 hours 2 step today showed no need for oxygen at rest or on exertion continue dexamethasone 6mg IV daily until discharge, no need for further steroids Remdesivir: completed 5 days used Lasix for negative fluid balance, no need for further Lasix at this time Lovenox 80 mg twice daily for DVT prophylaxis in setting of Covid (2) Hypertension: Blood pressure is controlled Continue clonidine 0.1 mg p.o. twice daily (3) Elevated blood sugar: Patient with elevated blood sugar of 223. No formal diagnosis of diabetes. Has been on steroids as an outpatient. Lantus 10 units twice daily, insulin sliding scale Goal blood sugar 100-1 40 will be off steroids now, can follow up with PCP recommend healthy life style, exercise, weight loss goal of 15% body weight initially d/c to home Total Time Total Time Spent Total Time Spent (In Minutes): 32 Total Time Includes: Examination of the Patient, Discharge Planning and Medication Reconciliation Discharge Plan Discharge Items Patient Disposition: Home - Self-Care Reason For Visit: COVID-19 PNA Discharge Diagnosis: COVID 19 pneumonia Acute hypoxic respiratory failure Condition on Discharge: Good Goals: get rest, stay well nourished and well hydrated Activity: Per Instructions section Driving/Machine Use: No limitations Weightbearing: Full weightbearing Non-emergency contact: Primary Care Provider Call non-emergency contact if: you have any medication questions and your symptoms worsen Follow-up/Referrals: PCP,NO [Primary Care Provider] - Diet: Low Sodium (2gm) Addtl Attending Provider Instructions: Medications: no need for further steroids or antibiotics COVID 19 pneumonia, acute hypoxic respiratory failure responded well to dexamethasone, Remdesivir, oxygen therapy as well as diuretics to get extra fluid off test today showed that you do not need any oxygen at rest or on exertion please wear a mask when you go outside your home, but you do not need to stay in isolation as you are more than 10 days from initial symptoms Pending Studies at Discharge: No Stand-Alone Forms: My [facility] [employer], Work/School Release, Smoking Cessation Medications and DC Order Prescriptions: Continued clonidine 0.1 mg PO BID RF: 0 Discontinued azithromycin 250 mg Tablet 250 mg PO DAILY RF: 0 dexamethasone [Decadron] 6 mg Tablet 6 mg PO DAILY RF: 0 Discharge Orders: Discharge Order (Routine); Ordered 06/16/21 Ordered By: Gino Cordova Admission Data Admit Date/Time: 06/07/21 22:21 Attending Provider: Gino Cordova Admit Provider: Marleen Laws Primary Care Provider: PCP,NO Other Providers: Marleen Laws ; Aby Brownlee Coding Level of Care Code D/C DAY MANAGEMENT >30 MINS Diagnoses COVID-19 U07.1 Hypertension I10 Elevated blood sugar R73.9
== END 2021-06-16 11:05 | disposition home or self-care (01) | DRG 177 ==
LOC: ED 19:16 → SUATTDRO 22:21 → 2S 22:21
DX: I10 Essential (primary) hypertension; U07.1 COVID-19; E66.01 Morbid (severe) obesity due to excess calories; J96.01 Acute respiratory failure with hypoxia; E78.5 Hyperlipidemia, unspecified; G47.33 Obstructive sleep apnea (adult) (pediatric); Z68.42 Body mass index [BMI] 45.0-49.9, adult; R73.9 Hyperglycemia, unspecified; J12.82 Pneumonia due to coronavirus disease 2019